=== PATIENT | male | born 1945 | race Caucasian/White ===

== ENCOUNTER 2019-06-01 21:59 | Inpatient (IN) | payer OTHER ==
[~2019-06-01] VITALS: Ht 162.6 cm; Wt 73.9 kg
[2019-06-01] MEDS ORDERED: ISOVUE-370 76% 100ML VIAL As Ordered ONE (23:04)
[2019-06-01 23:06] LABS: MEAN CORPUSCULAR HEMOGLOBIN 29.4 pg (27.0-33.0); MEAN CORPUSCULAR HGB CONC 34.2 g/dl (32.0-36.5); MEAN CORPUSCULAR VOLUME 85.8 fl (80.0-96.0); RED BLOOD COUNT 2.18 10^6/uL (4.30-6.10)
[2019-06-01 23:11] LABS: HEMATOCRIT 18.7 % (42.0-52.0)
[2019-06-01 23:15] LABS: HEMOGLOBIN 6.4 g/dl (13.5-17.5); INR 1.34; PLATELET COUNT, AUTOMATED 9 10^3/uL (150-450); PROTHROMBIN TIME 16.3 SECONDS (11.8-14.0)
[2019-06-01 23:30] LABS: ALBUMIN 2.6 GM/DL (3.2-5.2); ALT/SGPT 35 U/L (12-78); BILIRUBIN,DIRECT 0.5 MG/DL (0.0-0.2); BILIRUBIN,TOTAL 2.1 MG/DL (0.2-1.0); BLOOD UREA NITROGEN 26 MG/DL (7-18); CALCIUM LEVEL 8.4 MG/DL (8.8-10.2); CARBON DIOXIDE LEVEL 27 MEQ/L (21-32); CHLORIDE LEVEL 100 MEQ/L (98-107); CK-MB VALUE MASS < 1.0 NG/ML (<3.6); CPK CREATINE PHOSPHOKINASE 18 U/L (39-308); CREATININE FOR GFR 1.44 MG/DL (0.70-1.30); ETHYL ALCOHOL (ETHANOL) < 0.003 % (0.000-0.010); GLOMERULAR FILTRATION RATE 50.8 (>42); GLUCOSE, FASTING 129 MG/DL (70-100); LIPASE 93 U/L (73-393); MB/CK RELATIVE INDEX 5.56 (< OR =4); POTASSIUM SERUM 3.8 MEQ/L (3.5-5.1); SODIUM LEVEL 135 MEQ/L (136-145); THEOPHYLLINE LEVEL < 2.0 UG/ML (10.0-20.0); TOTAL PROTEIN 6.3 GM/DL (6.4-8.2); TROPONIN I < 0.02 NG/ML (< 0.10)
[2019-06-01 23:31] LABS: ATYPICAL LYMPH 5 % (0-5); EOSINOPHILS 6 % (0-3); LYMPHOCYTES 38 % (16-44); MONOCYTES 7 % (0-5); NEUTROPHILS 42 % (28-66); PLATELET ESTIMATE MARKED DECREASE (NORMAL)
[2019-06-01 23:32] LABS: POIKILOCYTOSIS 1+
[2019-06-01 23:33] LABS: ANISOCYTOSIS 1+
[2019-06-02] VITALS (18 sets, daily range): BP systolic 91–158; BP diastolic 50–88
[2019-06-02] MEDS ORDERED: PIPERACILLIN/TAZOBACTAM SOD 3.375 GM in D5W MINI-BAG PLUS 50 ML IV ONE (00:15)
[2019-06-02] MEDS ORDERED: VANCOMYCIN HCL 1,000 MG, VIAL MATE ADAPTER 1 EACH in D5W 250 ML IV SCH (00:15)
[2019-06-02 00:21] LABS: AMPHETAMINES LEVEL URINE NEGATIVE (NEGATIVE); BARBITURATES URINE NEGATIVE (NEGATIVE); BENZODIAZEPINES URINE NEGATIVE (NEGATIVE); CANNABINOIDS URINE NEGATIVE (NEGATIVE); COCAINE METABOLITE URINE NEGATIVE (NEGATIVE); METHADONE URINE NEGATIVE (NEGATIVE); OPIATES URINE NEGATIVE (NEGATIVE); PHENCYCLIDINE URINE NEGATIVE (NEGATIVE)
[2019-06-02] MEDS ORDERED: FOLI1TAB11 PO (00:35)
[2019-06-02] MEDS ORDERED: OMEP-218 PO (00:35)
[2019-06-02] MEDS ORDERED: DILT180C78 PO (00:35)
[2019-06-02] MEDS ORDERED: VENTAER INH (00:35)
[2019-06-02] MEDS ORDERED: THEO300T12 PO (00:35)
[2019-06-02] MEDS ORDERED: SPIR1CAP INH (00:35)
[2019-06-02] MEDS ORDERED: AMLO5TAB6 PO (00:35)
[2019-06-02] MEDS ORDERED: CIPR500T3 PO (00:35)
[2019-06-02] MEDS ORDERED: ATOR40TA75 PO (00:35)
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
--- NOTE | 2019-06-02 00:46 | REPVR ---
PROCEDURE INFORMATION: Exam: CT Lumbar Spine Without Contrast Exam date and time: 06/01/2019 10:28 PM Age: 74 years old Clinical indication: Low back pain; Additional info: Trauma TECHNIQUE: Imaging protocol: Computed tomography images of the lumbar spine without contrast. Radiation optimization: All CT scans at this facility use at least one of these dose optimization techniques: automated exposure control; mA and/or kV adjustment per patient size (includes targeted exams where dose is matched to clinical indication); or iterative reconstruction. COMPARISON: No relevant prior studies available. FINDINGS: No segmental lumbar vertebral malalignment. Vertebral body height and morphology is maintained. No acute fracture or destructive process. Intervertebral disc height is maintained for age. Mild posterior osteophyte formation and facet arthropathy in the mid and lower lumbar levels without osseous spinal canal narrowing. Hypertrophic ligamentum flavum arthropathy, disc bulge and facet arthropathy at L4-L5 and L3-L4 and to a lesser extent L2-L3 results in moderate spinal canal narrowing No dilatation of the imaged distal abdominal aorta. No significant abnormality of the imaged retroperitoneum. IMPRESSION: No fracture or other acute abnormality involving the lumbar spine. Moderate degenerative spinal canal narrowing L2-L3, L3-L4 and L4-L5 without osseous spinal canal or neural foraminal compromise Electronically signed by: Basilio Balderas On 06/02/2019 00:46:02 AM
--- NOTE | 2019-06-02 00:47 | REPVR ---
PROCEDURE INFORMATION: Exam: CT Cervical Spine Without Contrast Exam date and time: 06/01/2019 10:28 PM Age: 74 years old Clinical indication: Neck pain; Additional info: Trauma TECHNIQUE: Imaging protocol: Computed tomography images of the cervical spine without contrast. Radiation optimization: All CT scans at this facility use at least one of these dose optimization techniques: automated exposure control; mA and/or kV adjustment per patient size (includes targeted exams where dose is matched to clinical indication); or iterative reconstruction. COMPARISON: No relevant prior studies available. FINDINGS: Vertebrae: No acute fracture. Normal alignment. C2-C3: Minimal degenerative change of the right apophyseal joint with no spinal or foraminal stenosis. C3-C4: Minimal posterior paracentral osteophytes and degenerative changes of the apophyseal joints with no significant spinal or foraminal stenosis. C4-C5: Mild anterolisthesis with mild degenerative changes of apophyseal joints, right greater than left with borderline right neural foraminal stenosis. C5-C6: Slight anterolisthesis with degenerative changes of apophyseal joints with no significant spinal or foraminal stenosis. C6-C7: Mild interspace narrowing with minimal posterior osteophytes and low normal size of the spinal canal. There are degenerative changes of uncovertebral joints with moderate bilateral neural foraminal stenosis. C7-T1: Mild interspace narrowing with degenerative changes of apophyseal joints and low normal size of the neural foramen. Soft tissues: Unremarkable. Lungs: Lung apices are normal. IMPRESSION: Multilevel degenerative changes with neural foraminal stenosis bilaterally at C6-C7. No significant spinal stenosis and no acute fracture or subluxation. Electronically signed by: Alhaji Servin On 06/02/2019 00:46:52 AM
--- NOTE | 2019-06-02 00:53 | REPVR ---
PROCEDURE INFORMATION: Exam: CT Chest With Contrast Exam date and time: 06/01/2019 10:28 PM Age: 74 years old Clinical indication: Cough; Additional info: Trauma TECHNIQUE: Imaging protocol: Computed tomography of the chest with intravenous contrast. Radiation optimization: All CT scans at this facility use at least one of these dose optimization techniques: automated exposure control; mA and/or kV adjustment per patient size (includes targeted exams where dose is matched to clinical indication); or iterative reconstruction. Contrast material: ISO; Contrast volume: 100 ml; Contrast route: AC; COMPARISON: CR PORTABLE CHEST X-RAY 06/01/2019 10:44 PM FINDINGS: Lungs: Multiple ill-defined opacities in the lungs with appearance most suggestive of scarring, particularly right apex, subpleural upper lobes, and left lower lobe. No central endobronchial lesion and no evidence of pulmonary edema Pleural space: Miniscule dependent transudate density left pleural effusion. No right pleural effusion or pneumothorax. Heart: No overt cardiac enlargement or abnormal volume of pericardial fluid. . Mediastinum: No mediastinal hematoma. Aorta: Thoracic aorta shows no evidence of acute traumatic injury or dissection. Aorta appears tortuous. Great vessels off aortic arch: Atherosclerotic calcifications in the coronary vessels. Lymph nodes: No enlarged mediastinal lymph nodes. Bones/joints: No acute displaced fractures involving ribs, thoracic spine or shoulder girdle. Soft tissues: No asymmetric abnormality of the extrathoracic soft tissues. IMPRESSION: 1. No CT evidence of acute thoracic trauma. 2. Multifocal bilateral lung opacities which may represent areas of scarring, inflammatory change or infiltrative processes. Appearance is most suggestive of scarring. Follow-up is recommended as neoplasm cannot be excluded. Three-month follow-up CT is recommended based on the appearance. Electronically signed by: Basilio Balderas On 06/02/2019 00:52:54 AM
--- NOTE | 2019-06-02 00:55 | REPVR ---
PROCEDURE INFORMATION: Exam: CT Abdomen And Pelvis With Contrast Exam date and time: 06/01/2019 10:28 PM Age: 74 years old Clinical indication: Abdominal pain; Generalized; Additional info: Trauma TECHNIQUE: Imaging protocol: Computed tomography of the abdomen and pelvis with intravenous contrast. Radiation optimization: All CT scans at this facility use at least one of these dose optimization techniques: automated exposure control; mA and/or kV adjustment per patient size (includes targeted exams where dose is matched to clinical indication); or iterative reconstruction. Contrast material: ISO; Contrast volume: 100 ml; Contrast route: AC; COMPARISON: No relevant prior studies available. FINDINGS: Liver: Liver appears normal with no focal abnormality. Gallbladder and bile ducts: Gallstones are present in the gallbladder lumen. No adjacent fluid or duct dilatation. Pancreas: Pancreas appears normal. No focal mass or peripancreatic inflammation. Spleen: Spleen appears homogeneous without focal mass. Adrenals: Adrenal glands are normal in appearance. Kidneys and ureters: Kidneys are unremarkable aside from an exophytic 12 mm midpole left renal lesion measuring 26 Hounsfield units. Indeterminate density. Stomach and bowel: No evidence of small bowel obstruction. Diverticular changes are present within the colon without inflammation. Appendix: Appendix is not seen. No RLQ inflammation to suggest appendicitis. Intraperitoneal space: No pneumoperitoneum. Vasculature: Atherosclerotic change present in the aorta, without aneurysm. Main portal and splenic veins enhance normally. Lymph nodes: No enlarged lymph nodes. Bladder: Urinary bladder appears normal. Reproductive: Prostate is normal in size. Bones/joints: Bony structures are normal except for lumbar spine degenerative disc changes. Soft tissues: No intra-abdominal hematoma. No pelvic hematoma. Fat-containing left inguinal hernia is present. Other findings: No concerning focal abnormality of the extrinsic soft tissues. IMPRESSION: 1. No CT evidence of acute abdominal or pelvic trauma. 2. Cholelithiasis without biliary obstruction. 3. Indeterminate 12 mm exophytic midpole left renal lesion . Consider outpatient sonography to determine if this is a simple cyst. Electronically signed by: Basilio Balderas On 06/02/2019 00:55:18 AM
[2019-06-02] MEDS ORDERED: COMMENT (00:57)
--- NOTE | 2019-06-02 02:49 | REP ---
Clinical: Trauma. Technique: Portable upright view of the chest. Findings: Mediastinum and cardiac silhouette normal. Diffuse increased interstitial markings noted bilaterally with subtle ill-defined areas of opacity involving the right perihilar region and left mid to lower lung zone. A small left pleural effusion cannot be excluded. There is no evidence for pneumothorax. Right PICC line with tip in the SVC. Skeletal structures are intact. Impression: Diffusely increased interstitial markings along with subtle right perihilar and the left mid/lower lobe opacities are nonspecific but suggest an acute process. Differential diagnosis would include early interstitial edema, infectious/inflammatory process, trauma related changes as well as possible underlying neoplasm. Electronically Signed by Bartolo Santiago MD 06/02/2019 02:40 A
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
[2019-06-02] MEDS: diltiaZEM **CD** 180 MG CAP PO SCH ×2 (03:26→08:17)
[2019-06-02 08:14] LABS: CK-MB VALUE MASS < 1.0 NG/ML (<3.6); CPK CREATINE PHOSPHOKINASE 44 U/L (39-308); MB/CK RELATIVE INDEX 2.27 (< OR =4); TROPONIN I < 0.02 NG/ML (< 0.10)
[2019-06-02] MEDS: amLODIPine 5 MG TAB PO SCH (08:17)
[2019-06-02] MEDS: PIPERACILLIN/TAZOBACTAM SOD 3.375 GM in D5W MINI-BAG PLUS 50 ML IV SCH ×3 (08:17→20:19)
[2019-06-02] MEDS: OMEPRAZOLE 20 MG CAP PO SCH (08:17)
[2019-06-02] MEDS: FOLIC ACID 1 MG TAB PO SCH (08:18)
[2019-06-02] MEDS: TIOTROPIUM INHALER/CAPSULE (SPIRIVA) INH SCH (08:25)
[2019-06-02] MEDS ORDERED: FILGRASTIM 300 MCG/0.5 ML SYRINGE (J1442 PER 1MCG) SC SCH (09:00)
[2019-06-02] MEDS: METOPROLOL TART 25 MG TABLET PO SCH ×2 (10:09→20:21)
[2019-06-02] MEDS ORDERED: ACETAMINOPHEN TAB 650MG DOSE (2X325MG) PO PRN (11:00)
[2019-06-02 16:25] LABS: HEMATOCRIT 25.3 % (42.0-52.0); HEMOGLOBIN 8.8 g/dl (13.5-17.5); MEAN CORPUSCULAR HEMOGLOBIN 29.6 pg (27.0-33.0); MEAN CORPUSCULAR HGB CONC 34.8 g/dl (32.0-36.5); MEAN CORPUSCULAR VOLUME 85.2 fl (80.0-96.0); RED BLOOD COUNT 2.97 10^6/uL (4.30-6.10); WHITE BLOOD COUNT 2.3 10^3/uL (4.0-10.0)
[2019-06-02 16:27] LABS: PLATELET COUNT, AUTOMATED 15 10^3/uL (150-450)
[2019-06-02 16:49] LABS: ATYPICAL LYMPH 3 % (0-5); EOSINOPHILS 8 % (0-3); LYMPHOCYTES 25 % (16-44); METAMYELOCYTES 4 % (0-0); MONOCYTES 1 % (0-5); NEUTROPHILS 45 % (28-66)
[2019-06-02 16:56] LABS: PLATELET ESTIMATE MARKED DECREASE (NORMAL); TOXIC VACUOLATION 2+
[2019-06-02 16:58] LABS: DOHLE BODIES 1+
--- NOTE | 2019-06-02 20:34 | ECGEPIP ---
[facility] - ED Test Date: 2019-06-01 Pat Name: JEAN MARIE NORTH Department: Room: [place] [address] Gender: Male [employer] Administrator: : 1945 Requested By: MARIANNE Bell Order Number: [id number] Reading MD: Miguel Jewell Measurements Intervals [place] Rate: 106 P: DE: 0 QRS: 37 QRSD: 86 T: 50 QT: 318 QTc: 423 Interpretive Statements SINUS TACHYCARDIA NONSPECIFIC T-WAVE ABNORMALITY NO PRIORS FOR COMPARISON Electronically Signed on 06-02-2019 20:34:04 EDT by Miguel Jewell
[2019-06-02] MEDS: METOCLOPRAMIDE INJ 10MG/2ML VIAL (J2765 PER 1) IV SCH (20:47)
[2019-06-03] VITALS (8 sets, daily range): BP systolic 125–153; BP diastolic 61–86
[2019-06-03] MEDS: PIPERACILLIN/TAZOBACTAM SOD 3.375 GM in D5W MINI-BAG PLUS 50 ML IV SCH ×2 (02:07→08:06)
[2019-06-03] MEDS: METOCLOPRAMIDE INJ 10MG/2ML VIAL (J2765 PER 1) IV SCH ×6 (05:40→23:32)
[2019-06-03] MEDS: ACETAMINOPHEN TAB 650MG DOSE (2X325MG) PO PRN ×2 (05:56→12:48)
[2019-06-03 07:02] LABS: HEMATOCRIT 23.9 % (42.0-52.0); HEMOGLOBIN 8.5 g/dl (13.5-17.5); MEAN CORPUSCULAR HEMOGLOBIN 29.5 pg (27.0-33.0); MEAN CORPUSCULAR HGB CONC 35.6 g/dl (32.0-36.5); PLATELET COUNT, AUTOMATED 12 10^3/uL (150-450); RED BLOOD COUNT 2.88 10^6/uL (4.30-6.10)
[2019-06-03 07:31] LABS: CALCIUM LEVEL 7.9 MG/DL (8.8-10.2); GLOMERULAR FILTRATION RATE 34.8 (>42); POTASSIUM SERUM 3.4 MEQ/L (3.5-5.1)
[2019-06-03 07:41] LABS: ATYPICAL LYMPH 2 % (0-5); EOSINOPHILS 2 % (0-3); LYMPHOCYTES 14 % (16-44); METAMYELOCYTES 1 % (0-0); MONOCYTES 4 % (0-5); MYELOCYTES 1 % (0-0); NEUTROPHILS 63 % (28-66); PLATELET ESTIMATE MARKED DECREASE (NORMAL)
[2019-06-03 07:42] LABS: ANISOCYTOSIS 1+; DOHLE BODIES 1+; MICROCYTOSIS 1+; TOXIC GRANULATION 1+
[2019-06-03] MEDS: TIOTROPIUM INHALER/CAPSULE (SPIRIVA) INH SCH (07:43)
[2019-06-03] MEDS: METOPROLOL TART 25 MG TABLET PO SCH ×2 (08:06→20:00)
[2019-06-03] MEDS: FOLIC ACID 1 MG TAB PO SCH (08:07)
[2019-06-03] MEDS: diltiaZEM **CD** 180 MG CAP PO SCH (08:07)
[2019-06-03] MEDS: OMEPRAZOLE 20 MG CAP PO SCH (08:07)
[2019-06-03] MEDS: amLODIPine 5 MG TAB PO SCH (12:47)
[2019-06-03] MEDS ORDERED: POTASSIUM CHLORIDE 10 MEQ SR TABLET PO ONE (15:15)
--- NOTE | 2019-06-03 15:19 | REP ---
Right upper extremity duplex Doppler venous ultrasound. Real time compression and duplex Doppler evaluation of the right upper extremity deep venous system is performed. The right subclavian, jugular, axillary, brachial, basilic and cephalic veins are fully compressible where accessible with transducer pressure, and demonstrate no intraluminal thrombus and normal venous waveforms. There is no evidence of deep venous thrombosis. Impression: No evidence of deep venous thrombosis of the right upper extremity deep vein system. Electronically Signed by Juan Carlos Leyva MD 06/03/2019 03:11 P
[2019-06-03] MEDS: NS 1,000 ML IV SCH (15:56)
[2019-06-03] MEDS: CEFEPIME HCL 1 GM in D5W MINI-BAG PLUS 50 ML IV SCH (16:47)
--- NOTE | 2019-06-03 18:22 | IPNPDOC ---
Date Seen The patient was seen on 06/03/19. Progress Note SUBJECTIVE: 74-year-old male with past medical history of COPD, atrial fibrillation and acute myeloid leukemia was admitted for neutropenic fever. Patient has remained on empiric antibiotics, remained afebrile and asymptomatic throughout hospitalization. Patient seen in the morning, comfortable, no complacent. This time, no acute events overnight. 10 point review of system is negative for above PHYSICAL EXAMINATION: VITAL SIGNS: Please see below. GENERAL: No distress HEENT: Normocephalic, atraumatic, moist mucous membranes NECK: Supple CARDIOVASCULAR EXAMINATION: S1, S2, tachycardic RESPIRATORY EXAMINATION: Scattered rhonchi, no wheezing ABDOMINAL EXAMINATION: Soft, nontender, nondistended, positive bowel sounds EXTREMITIES: Range of motion intact SKIN: Petechiae noted NEUROLOGICAL EXAMINATION: Alert and oriented 3, no focal deficits PSYCHIATRIC EXAMINATION: Calm and cooperative LABORATORY DATA, IMAGING STUDIES, MICROBIOLOGY: Please see below. ASSESSMENT AND PLAN: 74-year-old male with past medical history of acute myeloid leukemia, COPD and atrial fibrillation is admitted for neutropenic fever and acute kidney injury. PROBLEMS: 1. Neutropenic fever: Afebrile and asymptomatic throughout hospitalization, cultures pending, continue empiric antibiotics, will switch Zosyn to cefepime due to acute kidney injury. Patient received Neupogen, absolute neutrophil count has recovered, Neupogen discontinued. 2. Anemic/Thrombocytopenic: Likely chronic and related to acute myeloid leukemia, PRBC/platelet transfusion dependent, will transfuse 1 unit of platelets today. 3. Acute on chronic kidney disease: Unknown etiology, possibly prerenal, gentle IV hydration, will perform extensive renal workup if continues to worsen. 4. COPD: Stable, continue tiotropium and supplemental oxygen as needed to maintain O2 sats between 88-92% 5. Atrial fibrillation: Not on anticoagulation due to severe thrombocytopenia, continue metoprolol and Cardizem for rate control. 6. Hypertension: Continue metoprolol, Cardizem and Norvasc DVT prophylaxis: Contraindicated due to thrombocytopenia. GI prophylaxis: Home PPI VS, I&O, 24H, Fishbone Vital Signs/I&O Vital Signs Date Time Temp Pulse Resp B/P (MAP) Pulse Ox O2 Delivery O2 Flow Rate FiO2 06/03/19 17:51 98.6 100 20 145/78 (100) 90 Room Air 4/16/20 21:00 1.0 I&O- Last 24 Hours up to 6 AM 06/03/19 06:00 Intake Total 3694 ml Output Total 950 ml Balance 2744 ml Laboratory Data 24H LABS Laboratory Tests 2 06/03/19 06:40: Immature Granulocyte % (Auto) , Neutrophils (%) (Auto) , Nucleated Red Blood Cells % (auto) 0.7H, Neutrophils 63, Band Neutrophils 13H, Lymphocytes (Manual) 14L, Monocytes (Manual) 4, Eosinophils (Manual) 2, Metamyelocytes 1H, Myelocytes 1H, Atypical Lymphocytes 2, Anisocytosis 1+, Microcytosis 1+, Toxic Granulation 1+, Dohle Bodies 1+, Platelet Estimate MARKED DECREASE, Immature Platelet Fraction 4.2, Anion Gap 9, Glomerular Filtration Rate 34.8L, Calcium Level 7.9L CBC/BMP Laboratory Tests 06/03/19 06:40 Microbiology Microbiology 06/01/19 Blood Culture - Preliminary, Resulted No growth after 24 hours . All specim... 06/01/19 Blood Culture - Preliminary, Resulted No growth after 24 hours . All specim... JEY EASTON MD Jun 03, 2019 18:22
[2019-06-03] MEDS ORDERED: hydrOXYzine 25 MG TAB PO ONE (20:00)
[2019-06-04] MEDS: NS 1,000 ML IV SCH (03:12)
[2019-06-04] MEDS: LEVALBUTEROL HFA 45MCG/ACT 15 GM INHALER INH PRN ×3 (03:56→16:48)
[2019-06-04 04:00] VITALS: BP 151/85
[2019-06-04] MEDS: CEFEPIME HCL 1 GM in D5W MINI-BAG PLUS 50 ML IV SCH ×2 (04:03→15:51)
[2019-06-04 04:50] LABS: HEMATOCRIT 22.5 % (42.0-52.0); HEMOGLOBIN 7.9 g/dl (13.5-17.5); MEAN CORPUSCULAR HEMOGLOBIN 29.4 pg (27.0-33.0); MEAN CORPUSCULAR HGB CONC 35.1 g/dl (32.0-36.5); MEAN CORPUSCULAR VOLUME 83.6 fl (80.0-96.0); RED BLOOD COUNT 2.69 10^6/uL (4.30-6.10); WHITE BLOOD COUNT 1.8 10^3/uL (4.0-10.0)
[2019-06-04 04:51] LABS: PLATELET COUNT, AUTOMATED 24 10^3/uL (150-450)
[2019-06-04 05:11] LABS: CALCIUM LEVEL 7.4 MG/DL (8.8-10.2); CREATININE FOR GFR 1.92 MG/DL (0.70-1.30); GLOMERULAR FILTRATION RATE 36.4 (>42); POTASSIUM SERUM 3.6 MEQ/L (3.5-5.1)
[2019-06-04 05:25] LABS: ATYPICAL LYMPH 1 % (0-5); EOSINOPHILS 3 % (0-3); LYMPHOCYTES 29 % (16-44); METAMYELOCYTES 3 % (0-0); MONOCYTES 5 % (0-5); MYELOCYTES 1 % (0-0); NEUTROPHILS 56 % (28-66)
[2019-06-04 05:26] LABS: PLATELET ESTIMATE MARKED DECREASE (NORMAL)
[2019-06-04] MEDS: METOCLOPRAMIDE INJ 10MG/2ML VIAL (J2765 PER 1) IV SCH ×3 (05:26→18:00)
[2019-06-04 05:27] LABS: DOHLE BODIES 1+
[2019-06-04 05:28] LABS: ANISOCYTOSIS 1+
[2019-06-04] MEDS: TIOTROPIUM INHALER/CAPSULE (SPIRIVA) INH SCH (07:39)
[2019-06-04] MEDS ORDERED: POTASSIUM CHLORIDE 10 MEQ SR TABLET PO ONE (09:00)
[2019-06-04] MEDS: diltiaZEM **CD** 180 MG CAP PO SCH (09:18)
[2019-06-04] MEDS: FOLIC ACID 1 MG TAB PO SCH (09:18)
[2019-06-04] MEDS: OMEPRAZOLE 20 MG CAP PO SCH (09:19)
[2019-06-04] MEDS: ACETAMINOPHEN TAB 650MG DOSE (2X325MG) PO PRN ×2 (09:19→18:58)
[2019-06-04] MEDS: METOPROLOL TART 25 MG TABLET PO SCH ×2 (09:19→20:48)
[2019-06-04] MEDS: amLODIPine 5 MG TAB PO SCH (09:20)
[2019-06-04] MEDS: ALPRAZolam 0.5 MG TAB PO PRN (10:11)
--- NOTE | 2019-06-04 10:21 | REP ---
Chest x-ray: Two views. History: Hypoxia. Comparison chest x-ray June 01, 2019. Findings: There are bilateral parenchymal opacities consistent with infiltrates in the upper and lower perihilar region on the right and in the left perihilar region on the left. These areas are all more prominent than on the June 01, 2019 prior study. There is slight blunting of the left lateral pleural angle. There is no evidence of pneumothorax. A right-sided PICC line remains in place with its tip in the expected location of the SVC right atrial junction. Lateral film shows slight fissural thickening. Impression: Bilateral perihilar infiltrates, increased from the study done June 01, 2019 suggestive of bilateral pneumonia. Right-sided PICC line. Electronically Signed by Kalia Cook MD 06/04/2019 10:28 A
[2019-06-04 11:32] LABS: URIC ACID 5.1 MG/DL (3.5-7.2)
--- NOTE | 2019-06-04 11:41 | IPNPDOC ---
Date Seen The patient was seen on 06/04/19. Progress Note SUBJECTIVE: 74-year-old male with past medical history of COPD, atrial fibrillation and acute myeloid leukemia was admitted for neutropenic fever. Patient has remained afebrile throughout hospitalization, received multiple blood products due to severe anemia and thrombocytopenia. Patient also with acute kidney injury, received IV fluids, appears more tachypneic in the morning, reports mild shortness of breath and cough, no other complaints. 10 point review of system is negative for above PHYSICAL EXAMINATION: VITAL SIGNS: Please see below. GENERAL: No distress HEENT: Normocephalic, atraumatic, moist mucous membranes NECK: Supple CARDIOVASCULAR EXAMINATION: S1, S2, irregularly irregular, tachycardic RESPIRATORY EXAMINATION: Scattered rhonchi, no wheezing ABDOMINAL EXAMINATION: Soft, nontender, nondistended, positive bowel sounds EXTREMITIES: Range of motion intact SKIN: Petechiae noted NEUROLOGICAL EXAMINATION: Alert and oriented 3, no focal deficits PSYCHIATRIC EXAMINATION: Calm and cooperative LABORATORY DATA, IMAGING STUDIES, MICROBIOLOGY: Please see below. ASSESSMENT AND PLAN: 74-year-old male with past medical history of acute myeloid leukemia, COPD and atrial fibrillation is admitted for neutropenic fever and acute kidney injury. PROBLEMS: 1. Neutropenic fever: Afebrile and asymptomatic throughout hospitalization, cultures negative to date, continue cefepime. 2. Acute myeloid leukemia: Status post induction treatment 1-2 weeks ago, pancytopenic, received Neupogen/PRBC/platelets, continue Neupogen, oncology eval pending, 3. Acute on chronic kidney disease: Unknown etiology, possible tumor lysis syndrome, uric acid pending, patient appears volume overloaded, tachypneic and chest x-ray showing pulmonary vascular congestion, Lasix 40 mg IV 1, will monitor and treat accordingly. TTE pending 4. COPD: Stable, continue tiotropium and supplemental oxygen as needed to maintain O2 sats between 88-92% 5. Atrial fibrillation: Not on anticoagulation due to severe thrombocytopenia, continue metoprolol and Cardizem for rate control. 6. Hypertension: Continue metoprolol, Cardizem and Norvasc DVT prophylaxis: Contraindicated due to thrombocytopenia. GI prophylaxis: Home PPI VS, I&O, 24H, Fishbone Vital Signs/I&O Vital Signs Date Time Temp Pulse Resp B/P (MAP) Pulse Ox O2 Delivery O2 Flow Rate FiO2 06/04/19 09:20 118 151/85 06/04/19 04:00 97.6 22 92 Nasal Cannula 2.0 I&O- Last 24 Hours up to 6 AM 06/04/19 05:59 Intake Total 2120 ml Output Total 1100 ml Balance 1020 ml Laboratory Data 24H LABS Laboratory Tests 2 06/04/19 04:25: Neutrophils (%) (Auto) , Nucleated Red Blood Cells % (auto) 1.1H, Neutrophils 56, Band Neutrophils 2, Lymphocytes (Manual) 29, Monocytes (Manual) 5, Eosino phils (Manual) 3, Metamyelocytes 3H, Myelocytes 1H, Atypical Lymphocytes 1, Anisocytosis 1+, Dohle Bodies 1+, Platelet Estimate MARKED DECREASE, Anion Gap 8, Glomerular Filtration Rate 36.4L, Calcium Level 7.4L CBC/BMP Laboratory Tests 06/04/19 04:25 Microbiology Microbiology 06/01/19 Blood Culture - Preliminary, Resulted No Growth after 48 hours. All Specime... 06/01/19 Blood Culture - Preliminary, Resulted No Growth after 48 hours. All Specime... JEY EASTON MD Jun 04, 2019 11:41
[2019-06-04] MEDS ORDERED: FUROSEMIDE 40MG/4ML VIAL (J1940) IV ONE (12:00)
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
[2019-06-04] MEDS ORDERED: FILGRASTIM 300 MCG/0.5 ML SYRINGE (J1442 PER 1MCG) SC ONE (14:00)
[2019-06-04 14:13] VITALS: BP 145/85
[2019-06-04 17:10] LABS: ABG HCO3 22.1 MEQ/L (22.0-26.0); ABG O2 SATURATION 93.2 % (95.0-99.0); ABG PARTIAL PRESSURE CO2 30.9 mmHg (35.0-45.0); ABG PARTIAL PRESSURE O2 66.7 mmHg (75.0-100.0); ABG STANDARD HCO3 23.6 MEQ/L (22.0-26.0); ABG TOTAL CO2 23.1 MEQ/L (23.0-31.0); ABG pH (ARTERIAL) 7.473 UNITS (7.350-7.450)
[2019-06-04 22:00] VITALS: BP 131/58
[2019-06-04] MEDS: FUROSEMIDE 40MG/4ML VIAL (J1940) IV SCH (23:54)
[2019-06-05] MEDS: CEFEPIME HCL 1 GM in D5W MINI-BAG PLUS 50 ML IV SCH (04:23)
[2019-06-05 04:27] LABS: HEMATOCRIT 26.4 % (42.0-52.0); MEAN CORPUSCULAR HGB CONC 34.1 g/dl (32.0-36.5); MEAN CORPUSCULAR VOLUME 85.2 fl (80.0-96.0); WHITE BLOOD COUNT 4.4 10^3/uL (4.0-10.0)
[2019-06-05 04:35] LABS: PLATELET COUNT, AUTOMATED 25 10^3/uL (150-450)
[2019-06-05 04:47] LABS: CALCIUM LEVEL 8.3 MG/DL (8.8-10.2); CREATININE FOR GFR 2.09 MG/DL (0.70-1.30); POTASSIUM SERUM 4.2 MEQ/L (3.5-5.1)
[2019-06-05 04:49] LABS: EOSINOPHILS 2 % (0-3); LYMPHOCYTES 9 % (16-44); METAMYELOCYTES 11 % (0-0); MONOCYTES 3 % (0-5); MYELOCYTES 1 % (0-0); NEUTROPHILS 69 % (28-66); PLATELET ESTIMATE MARKED DECREASE (NORMAL)
[2019-06-05 04:51] LABS: DOHLE BODIES 1+
[2019-06-05 04:52] LABS: ANISOCYTOSIS 1+
[2019-06-05] MEDS: ACETAMINOPHEN TAB 650MG DOSE (2X325MG) PO PRN (05:38)
[2019-06-05] MEDS: ALPRAZolam 0.5 MG TAB PO PRN (05:38)
[2019-06-05 06:00] VITALS: BP 154/68
--- NOTE | 2019-06-05 06:33 | ECHO ---
DATE OF PROCEDURE: 06/04/2019 DATE OF : 1945 AGE: 74 GENDER: Male. HEIGHT: 61 inches WEIGHT: 165 pounds BODY SURFACE AREA: 1.8 m2 INPATIENT: Maya luque, room 5146 REFERRING PHYSICIAN: Dr. Ridge Landaverde INDICATION: Congestive heart failure (unspecified). MEASUREMENTS: 2-D Measurements: RV: 4.6 cm LV: 5.1 cm Septum: 1.0 cm Posterior wall: 1.0 cm Aortic root: 3.1 cm LA: 3.9 cm LVEF: 55% Doppler Measurements: AV: 1.85 m/sec LVOT: 0.95 m/sec LVOT diameter: 2.0 cm Mean AV systolic gradient: 8 mmHg Dimensionless index: 0.42 MV - E: 102, A: 76, EA ratio: 1.3 Early mitral deceleration time: 209 ms E prime medial: 6.2, A prime medial: 10, E prime lateral: 8.4 Average E/E prime ratio: 14/PCWP 19 mmHg PV: 0.9 m/sec Pulmonary artery acceleration time: 87 ms RVSP: 45-50 mmHg IVC: 2.2 cm COMMENTS: Sinus tachycardia with occasional to frequent isolated PACs. No intraventricular conduction disturbance. M-mode and two-dimensional echocardiography was performed with pulsed, continuous wave, color flow and tissue Doppler studies. Normal left ventricular size and wall thickness. Localized septal wall motion abnormality in keeping with right ventricular pressure overload. Other left ventricle wall segments move normally with preserved global resting systolic function. Left atrium upper limits of normal in size with grade II LV diastolic dysfunction but current estimated mean left atrial pressure upper limits of normal to slightly elevated. Moderately dilated right heart chambers with slight hypokinesis of the right ventricular free wall and Doppler evidence of at least moderate to moderately severe pulmonary hypertension. Mildly dilated inferior vena cava with slightly reduced respiratory collapse in keeping with an elevated central venous pressure. Normal aortic dimensions. Moderate thickening of three equal size aortic cusps in keeping with aortic sclerosis and at most marginal stenosis and only trace insufficiency. Mild degenerative changes of the mitral valvular apparatus with adequate leaflet excursion and very mild insufficiency. Normal appearing tricuspid valve with mild insufficiency. No apparent intracardiac mass or pericardial effusion. Preliminary report of this study was relayed directly to Dr. Landaverde 06/04/2019.
[2019-06-05] MEDS: TIOTROPIUM INHALER/CAPSULE (SPIRIVA) INH SCH (07:33)
[2019-06-05] MEDS: LEVALBUTEROL HFA 45MCG/ACT 15 GM INHALER INH PRN (07:34)
[2019-06-05] MEDS ORDERED: VANCOMYCIN HCL 1,000 MG, VIAL MATE ADAPTER 1 EACH in D5W 250 ML IV ONE (08:00)
[2019-06-05] MEDS ORDERED: FLUCONAZOLE 100 MG TAB PO ONE (08:00)
[2019-06-05] MEDS: FOLIC ACID 1 MG TAB PO SCH (08:25)
[2019-06-05] MEDS: METOPROLOL TART 25 MG TABLET PO SCH (08:25)
[2019-06-05] MEDS: OMEPRAZOLE 20 MG CAP PO SCH (08:25)
[2019-06-05] MEDS: diltiaZEM **CD** 180 MG CAP PO SCH (08:25)
[2019-06-05] MEDS: amLODIPine 5 MG TAB PO SCH (08:25)
[2019-06-05] MEDS ORDERED: FILGRASTIM 300 MCG/0.5 ML SYRINGE (J1442 PER 1MCG) SC SCH (09:00)
[2019-06-05 11:21] LABS: ALBUMIN 2.5 GM/DL (3.2-5.2); BILIRUBIN,TOTAL 1.1 MG/DL (0.2-1.0); TOTAL PROTEIN 5.8 GM/DL (6.4-8.2); URIC ACID 6.1 MG/DL (3.5-7.2)
[2019-06-05] MEDS: FUROSEMIDE 40MG/4ML VIAL (J1940) IV SCH (11:31)
[2019-06-05] MEDS: IPRATROPIUM 0.5MG/ALBUTEROL 2.5MG INH SOL UD 3ML (DUONEB)(J7620) NEB SCH ×3 (12:00→20:23)
[2019-06-05 13:01] LABS: AMORPHOUS SEDIMENT SMALL (NEGATIVE); APPEARANCE, URINE HAZY (CLEAR); BACTERIA, URINE AUTO 1+ (NEGATIVE); BILIRUBIN, URINE AUTO NEGATIVE (NEGATIVE); BLOOD, URINE BLOOD 3+ (NEGATIVE); COLOR, URINE YELLOW (YELLOW); GLUCOSE, URINE (UA) AUTO NEGATIVE (NEGATIVE); GRANULAR CAST, URINE AUTO 9 /LPF; KETONE, URINE AUTO NEGATIVE (NEGATIVE); LEUKOCYTE ESTERASE, URINE AUTO NEGATIVE (NEGATIVE); MUCUS, URINE SMALL (NEGATIVE); NITRITE, URINE AUTO NEGATIVE (NEGATIVE); PROTEIN, URINE AUTO 2+ mg/dL (NEGATIVE); RBC, URINE AUTO 177 /HPF (0-3); SPECIFIC GRAVITY URINE AUTO 1.006 (1.002-1.035); SQUAMOUS EPITHELIAL CELL UR AU 0 /HPF (0-6); UROBILINOGEN, URINE AUTO 0.2 mg/dL (0.0-2.0); WBC, URINE AUTO 1 /HPF (0-3)
[2019-06-05 13:30] VITALS: BP 154/70
[2019-06-05 14:10] VITALS: BP 139/66
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
[2019-06-05] MEDS: MEROPENEM INJ 1 GM in IV 1 EA IV SCH (14:47)
[2019-06-05] MEDS: methylPREDNISolone INJ 125 MG/2 ML VIAL (J2930) IV SCH (14:47)
--- NOTE | 2019-06-05 15:56 | IPNPDOC ---
Date Seen The patient was seen on 06/05/19. Progress Note SUBJECTIVE: 74-year-old male with past medical history of COPD, atrial fibrillation and acute myeloid leukemia was admitted for neutropenic fever. Patient seen in the morning, remains tachypneic but denies dyspnea when asked and reports he's comfortable. He continues to require supplemental oxygen, has had good urine output w/ IV Lasix. He has been febrile over the past 24 hours. He denies any CP, N/V/D or constipation. 10 point review of system is negative for above PHYSICAL EXAMINATION: VITAL SIGNS: Please see below. GENERAL: No distress HEENT: Normocephalic, atraumatic, moist mucous membranes NECK: Supple CARDIOVASCULAR EXAMINATION: S1, S2, irregular, tachycardic RESPIRATORY EXAMINATION: Scattered rhonchi, poor air movement ABDOMINAL EXAMINATION: Soft, nontender, nondistended, positive bowel sounds EXTREMITIES: Range of motion intact SKIN: Petechiae noted NEUROLOGICAL EXAMINATION: Alert and oriented 3, no focal deficits PSYCHIATRIC EXAMINATION: Calm and cooperative LABORATORY DATA, IMAGING STUDIES, MICROBIOLOGY: Please see below. ASSESSMENT AND PLAN: 74-year-old male with past medical history of acute myeloid leukemia, COPD and atrial fibrillation is admitted for neutropenic fever and acute kidney injury. PROBLEMS: 1. Neutropenic fever: Spiked fever x2 over the past 24 hours, antibiotics switched to Vanc/Merrem, added Fluconazole as well, initial cultures negative, repeat cultures ordered. 2. Acute myeloid leukemia: Status post palliative chemotherapy x2 cycles, pancytopenic, received Neupogen/PRBC/platelets, counts improving & stable, Neupogen discontinued, oncology eval appreciated. 3. Acute on chronic kidney disease: Likely due to chemotherapy (Gemcitabine), creatinine stable ~2, continue diuresis w/ IV Lasix, TTE noted, Nephrology eval appreciated. 4. COPD: given dyspnea & increased oxygen requirements, started on IV steroids in addition to antibiotics, duoneb PRN, continue Tiotropium & supplemental oxygen as needed to maintain O2 sats between 88-92% 5. Atrial fibrillation: Not on anticoagulation due to severe thrombocytopenia, continue Cardizem for rate control. 6. Hypertension: Continue Cardizem and Norvasc DVT prophylaxis: Contraindicated due to thrombocytopenia. GI prophylaxis: Home PPI VS, I&O, 24H, Fishbone Vital Signs/I&O Vital Signs Date Time Temp Pulse Resp B/P (MAP) Pulse Ox O2 Delivery O2 Flow Rate FiO2 06/05/19 14:11 4.0 06/05/19 14:10 99.5 117 24 139/66 (90) 88 Nasal Cannula I&O- Last 24 Hours up to 6 AM 06/05/19 05:59 Intake Total 1580 ml Output Total 2545 ml Balance -965 ml Laboratory Data 24H LABS Laboratory Tests 2 06/04/19 17:01: Blood Gas Bicarbonate Standard 23.6, Arterial Blood pH 7.473H, Arterial Blood Partial Pressure CO2 30.9L, Arterial Blood Partial Pressure O2 66.7L, Arterial Blood Total CO2 23.1, Arterial Blood HCO3 22.1, Arterial Blood Base Excess -1.0, Arterial Blood Oxygen Saturation 93.2L 06/05/19 04:14: Neutrophils (%) (Auto) , Nucleated Red Blood Cells % (auto) 0.7H, Neutrophils 69H, Band Neutrophils 5, Lymphocytes (Manual) 9L, Monocytes (Manual) 3, Eosinophils (Manual) 2, Metamyelocytes 11H, Myelocytes 1H, Anisocytosis 1+, Dohle Bodies 1+, Platelet Estimate MARKED DECREASE, Differential Slide Review Report, Immature Platelet Fraction 5.6, Peripheral Blood Smear Path Consult PERIPHERAL SMEAR, Anion Gap 8, Glomerular Filtration Rate 33.0L, Uric Acid 6.1, Calcium Level 8.3L, Phosphorus Level 4.0, Total Bilirubin 1.1H, Aspartate Amino Transf (AST/SGOT) 16, Alanine Aminotransferase (ALT/SGPT) 23, Alkaline Phosphatase 59, NH-Unj-T-Type Natriuretic Peptide 1494H, Total Protein 5.8L, Albumin 2.5L, Albumin/Globulin Ratio 0.76L 06/05/19 12:47: Urine Color YELLOW, Urine Appearance HAZY, Urine pH 5.0, Urine Specific [place] 1.006, Urine Protein 2+H, Urine Glucose (Auto)(UA) NEGATIVE, Urine Ketones (Auto) NEGATIVE, Urine Blood 3+H, Urine Nitrite NEGATIVE, Urine Bilirubin NEGATIVE, Urine Urobilinogen 0.2, Urine Leukocyte Esterase (Auto) NEGATIVE, Urine WBC (Auto) 1, Urine RBC (Auto) 177H, Urine Hyaline Casts (Auto) 0, Urine Bacteria (Auto) 1+H, Urine Squamous Epithelial Cells 0, Urine Amorphous Sediment (Auto) SMALLH, Urine Granular Casts (Auto) 9, Urine Mucus (Auto) SMALL, Urine Sperm (Auto) CBC/BMP Laboratory Tests 06/05/19 04:14 Microbiology Microbiology 06/05/19 Blood Culture, Received Pending 06/01/19 Blood Culture - Preliminary, Resulted No Growth after 72 hours. All specime... 06/01/19 Blood Culture - Preliminary, Resulted No Growth after 72 hours. All specime... JEY EASTON MD Jun 05, 2019 15:56
[2019-06-05 16:00] VITALS: BP 146/58
[2019-06-05] MEDS ORDERED: SODIUM CHLORIDE 0.9% INJ 10 ML SYR IV PRN (16:00)
[2019-06-05] MEDS ORDERED: SLF 3 ML SYR IV PRN (16:00)
[2019-06-05] MEDS: SODIUM CHLORIDE 0.9% INJ 10 ML SYR IV SCH (16:44)
[2019-06-05] MEDS ORDERED: FUROSEMIDE 100MG/10ML VIAL (J1940) IV SCH (17:00)
--- NOTE | 2019-06-05 18:14 | PHACANCOPD ---
PHARMACY VANCOMYCIN DOSING Pt Demographics Demographics Patient Age:74 , Weight:76.800 , Gender: male Adjusted Body Weight Date: 06/05/19, Adjusted Body Weight: Kg Events Past 24 Hours Events Past 24 Hours: NO: Dialysis, Diuretic Therapy, Change in CrCl, Fever, Elevation in WBC, Pending Diagnostics, Pending Procedures, Other Vancomycin Vancomycin indication: NEUTROPENIC FEVER Vancomycin Target Ranges: 15-20 mcg/ml Vancomycin Load Y/N: No Load Dose Date Time Vancomycin Load Dose: Date: Time: Vancomycin Dose Date: 06/05/19. Current Vancomycin Dose: [1G IV Q24H] Intermittent Dosing?: No Labs Labs Item Value Date Time Creatinine 2.00 MG/DL H 06/03/19 0640 Creatinine 1.92 MG/DL H 06/04/19 0425 Creatinine 2.09 MG/DL H 06/05/19 0414 Micro Microbiology 06/05/19 Blood Culture, Received Pending 06/01/19 Blood Culture - Preliminary, Resulted No Growth after 72 hours. All specime... 06/01/19 Blood Culture - Preliminary, Resulted No Growth after 72 hours. All specime... Creatinine Clearance Date:06/05/19. Creatinine Clearance: [25ML/MIN]. Pending Labs VANCOMYCIN TROUGH 06/07/19 @0700 Assessment and Plan Maintaining Current Dose?: Yes Reason for dose change: No Dose Change Pharmacist Note Pharmacist Note Date: 06/05/19. Pharmacist note: Pt is a 74 year old male being treated for neutropenic fever goal trough 15-20mcg/ml. The patient has received 1g vancomycin iv 06/01 @02 in the ER. To achieve goal they will receive vancomycin 1g IV every 24 hours starting 06/05/19 @08:00. A trough is scheduled for 06/06 @07:00. We will continue to monitor and adjust the dose as needed. BRIEN XIE PHARMACY Jun 05, 2019 18:14
[2019-06-05 20:00] VITALS: BP 118/65
[2019-06-05] MEDS: SLF 3 ML SYR IV SCH (21:25)
[2019-06-06] VITALS (9 sets, daily range): BP systolic 121–154; BP diastolic 58–72
[2019-06-06] MEDS ORDERED: FUROSEMIDE 100MG/10ML VIAL (J1940) IV SCH
[2019-06-06] MEDS: MEROPENEM INJ 1 GM in IV 1 EA IV SCH ×2 (01:19→14:19)
[2019-06-06] MEDS: methylPREDNISolone INJ 125 MG/2 ML VIAL (J2930) IV SCH ×2 (01:20→14:20)
[2019-06-06 04:48] LABS: HEMATOCRIT 25.1 % (42.0-52.0); HEMOGLOBIN 8.7 g/dl (13.5-17.5); MEAN CORPUSCULAR HEMOGLOBIN 29.4 pg (27.0-33.0); MEAN CORPUSCULAR HGB CONC 34.7 g/dl (32.0-36.5); MEAN CORPUSCULAR VOLUME 84.8 fl (80.0-96.0); RED BLOOD COUNT 2.96 10^6/uL (4.30-6.10); WHITE BLOOD COUNT 3.4 10^3/uL (4.0-10.0)
[2019-06-06 05:17] LABS: PLATELET COUNT, AUTOMATED 14 10^3/uL (150-450)
[2019-06-06 05:22] LABS: CALCIUM LEVEL 8.4 MG/DL (8.8-10.2); CREATININE FOR GFR 2.27 MG/DL (0.70-1.30); POTASSIUM SERUM 3.6 MEQ/L (3.5-5.1)
[2019-06-06] MEDS: SODIUM CHLORIDE 0.9% INJ 10 ML SYR IV SCH ×2 (05:23→17:22)
[2019-06-06] MEDS: SLF 3 ML SYR IV SCH ×3 (05:24→22:00)
[2019-06-06] MEDS ORDERED: POTASSIUM CHLORIDE 10 MEQ SR TABLET PO ONE (05:30)
[2019-06-06 05:33] LABS: EOSINOPHILS 2 % (0-3); LYMPHOCYTES 8 % (16-44); METAMYELOCYTES 16 % (0-0); MONOCYTES 4 % (0-5); MYELOCYTES 4 % (0-0); NEUTROPHILS 60 % (28-66); PLATELET ESTIMATE MARKED DECREASE (NORMAL)
[2019-06-06 05:34] LABS: DOHLE BODIES 2+; TOXIC GRANULATION 1+
--- NOTE | 2019-06-06 07:43 | IPNPDOC ---
Date Seen Date of service 06/06/19. Progress Note Laboratory data reviewed this AM b/p stable Hb Stable 8.7 Plt 14K WBC 3.4 Rise in creatinine expected due to diuretic use Had troponin release c/w NQWMI and documented hypotension 06/02/19 Would proceed with on additional infusion of platelets today for count of 14K and expected decline in levels Prognosis remains quite poor Still on supplemental O2 VS, I&O, 24H, Fishbone Vital Signs/I&O Vital Signs Date Time Temp Pulse Resp B/P (MAP) Pulse Ox O2 Delivery O2 Flow Rate FiO2 06/06/19 04:00 96.7 101 22 121/59 (79) 90 Room Air 06/05/19 20:00 I&O- Last 24 Hours up to 6 AM 06/06/19 06:00 Intake Total 510 ml Output Total 1350 ml Balance -840 ml Laboratory Data 24H LABS Laboratory Tests 2 06/05/19 12:47: Urine Color YELLOW, Urine Appearance HAZY, Urine pH 5.0, Urine Specific [place] 1.006, Urine Protein 2+H, Urine Glucose (Auto)(UA) NEGATIVE, Urine Ketones (Auto) NEGATIVE, Urine Blood 3+H, Urine Nitrite NEGATIVE, Urine Bilirubin NEGATIVE, Urine Urobilinogen 0.2, Urine Leukocyte Esterase (Auto) NEGATIVE, Urine WBC (Auto) 1, Urine RBC (Auto) 177H, Urine Hyaline Casts (Auto) 0, Urine Bacteria (Auto) 1+H, Urine Squamous Epithelial Cells 0, Urine Amorphous Sediment (Auto) SMALLH, Urine Granular Casts (Auto) 9, Urine Mucus (Auto) SMALL, Urine Sperm (Auto) 06/06/19 04:38: Immature Granulocyte % (Auto) , Neutrophils (%) (Auto) , Nucleated Red Blood Cells % (auto) 0.0, Neutrophils 60, Band Neutrophils 6, Lymphocytes (Manual) 8L, Monocytes (Manual) 4, Eosinophils (Manual) 2, Metamyelocytes 16H, Myelocytes 4H, Toxic Granulation 1+, Dohle Bodies 2+, Platelet Estimate MARKED DECREASE, Immature Platelet Fraction 5.8, Anion Gap 9, Glomerular Filtration Rate 30.0L, Calcium Level 8.4L CBC/BMP Laboratory Tests 06/06/19 04:38 Microbiology Microbiology 06/05/19 Blood Culture - Preliminary, Resulted No growth after 24 hours . All specim... 06/01/19 Blood Culture - Preliminary, Resulted No Growth after 72 hours. All specime... 06/01/19 Blood Culture - Preliminary, Resulted No Growth after 72 hours. All specime... ALEJANDRO LARKIN MD Jun 06, 2019 07:43
[2019-06-06] MEDS ORDERED: VANCOMYCIN HCL 1,000 MG, VIAL MATE ADAPTER 1 EACH in D5W 250 ML IV SCH (08:00)
[2019-06-06] MEDS: IPRATROPIUM 0.5MG/ALBUTEROL 2.5MG INH SOL UD 3ML (DUONEB)(J7620) NEB SCH ×4 (08:10→20:21)
[2019-06-06] MEDS: TIOTROPIUM INHALER/CAPSULE (SPIRIVA) INH SCH (08:10)
[2019-06-06] MEDS: FLUCONAZOLE 100 MG TAB PO SCH (08:58)
[2019-06-06] MEDS: OMEPRAZOLE 20 MG CAP PO SCH (08:58)
[2019-06-06] MEDS: diltiaZEM **CD** 180 MG CAP PO SCH (08:58)
[2019-06-06] MEDS: FOLIC ACID 1 MG TAB PO SCH (08:58)
[2019-06-06] MEDS: FUROSEMIDE 40MG/4ML VIAL (J1940) IV SCH ×2 (09:00→16:36)
--- NOTE | 2019-06-06 11:35 | IPNPDOC ---
Text Note Date of Service The patient was seen on 06/06/19. NOTE SUBJECTIVE: 74-year-old male with past medical history of COPD, atrial fibril lation and acute myeloid leukemia was admitted for neutropenic fever. And seen this morning at bedside, he has no complaints at this time and looks comfortable in bed on room air now. He denies any fevers, chills, chest pain, difficulty breathing, nausea, vomiting, or abdominal pain. PHYSICAL EXAMINATION: VITAL SIGNS: Please see below. GENERAL: No distress HEENT: Normocephalic, atraumatic, moist mucous membranes NECK: Supple CARDIOVASCULAR EXAMINATION: Tachycardic, irregular rate. S1 and S2 appreciated. No murmurs, gallops, rubs. RESPIRATORY EXAMINATION: Diminished breath sounds bilaterally, Scattered rhonchi, no wheezes, crackles. ABDOMINAL EXAMINATION: Soft, nontender, nondistended, positive bowel sounds EXTREMITIES: Range of motion intact SKIN: Petechiae noted NEUROLOGICAL EXAMINATION: Alert and oriented 3 (person, place, year, situation), no focal deficits PSYCHIATRIC EXAMINATION: Calm and cooperative LABORATORY DATA, IMAGING STUDIES, MICROBIOLOGY: Please see below. ASSESSMENT AND PLAN: 74-year-old male with past medical history of acute myeloid leukemia, COPD and atrial fibrillation is admitted for neutropenic fever and acute kidney injury. PROBLEMS: 1. Neutropenic fever: afebrile for past 24 hours, continue Vanc/merrem, fluconazole day 2, repeat/initial cultures negative 2. Acute myeloid leukemia: Status post palliative chemotherapy x2 cycles, pancytopenic, received Neupogen/PRBC/platelets, platelets down to 14, oncology recommending giving additional unit of platelets. Neupogen discontinued, continued oncology recs appreciated. Discussed CODE STATUS today with him he feels as though whether his daughter thinks his best friend is what he would like to be done. We'll call his daughter today to discuss his CODE STATUS. 3. Acute on chronic kidney disease: Likely 2/2 chemotherapy (Gemcitabine), creatinine continues to rise, nephrology on board, continued recommendations appreciated. 4. COPD: given dyspnea & increased oxygen requirements, started on IV steroids in addition to antibiotics, duoneb PRN, continue Tiotropium & supplemental oxygen as needed to maintain O2 sats between 88-92% 5. Atrial fibrillation: Not on anticoagulation due to severe thrombocytopenia, continue Cardizem for rate control. 6. Hypertension: Continue Cardizem and Norvasc DVT prophylaxis: Contraindicated due to thrombocytopenia. GI prophylaxis: Home PPI VS,Fishbone, I+O VS, Fishbone, I+O Laboratory Tests 06/06/19 04:38 Vital Signs Date Time Temp Pulse Resp B/P (MAP) Pulse Ox O2 Delivery O2 Flow Rate FiO2 06/06/19 08:58 113 139/68 06/06/19 08:00 96.9 18 92 Room Air 06/05/19 20:00 I&O- Last 24 Hours up to 6 AM 06/06/19 06:00 Intake Total 510 ml Output Total 1350 ml Balance -840 ml GME ATTESTATION GME ATTESTATION My faculty preceptor for this patient encounter was physically present during the encounter and was fully available. All aspects of the patient interview, examination, medical decision making process, and medical care plan development were reviewed and approved by the faculty preceptor. The faculty preceptor is aware and concurs with the plan as stated in the body of this note and will attest to such by his/her cosignature. BAUTISTA DANIELSON DO Jun 06, 2019 11:35
--- NOTE | 2019-06-06 13:48 | IPN ---
DATE OF SERVICE: 06/06/2019 SUBJECTIVE: The patient was seen and examined at the bedside today morning. He was sitting up in the bed today. He was off the oxygen. He reports that he is feeling much better today as compared with yesterday. He is afebrile in the last 24 hours since his antibiotics were changed. There is slight worsening of his renal function. Creatinine has bumped up from 2 to 2.2 today. Otherwise, he denies any active complaints. OBJECTIVE: Vital signs: Temperature is 96.7 degrees Fahrenheit, blood pressure 122/64, pulse is 93, respiratory rate of 20, saturating 94% on room air. Intake and output: Urine output recorded is 2.2 liters yesterday, 200 mL so far today since overnight. Weight in the bed scale is 73.9 kg. PHYSICAL EXAMINATION: General: The patient is awake, alert, oriented times three, laying in bed, no apparent distress. Head and neck examination: Extraocular muscles intact. Pupils equally round and reactive to light. Mucous membranes are moist. Neck is supple. There is no significant jugular venous distention (JVD). Cardiovascular: S1, S2, tachycardia, irregularly irregular rate, 1+ edema on the bilateral lower extremities. Respiratory: Mildly decreased breath sounds at the bases. There is no rhonchi at this time. Abdomen: Soft, obese, positive bowel sounds, nontender. Musculoskeletal: No clubbing or cyanosis. Pulses are 2+. Central nervous system (FIRE ENGINE OPERATOR): No focal deficit. Power is 5/5 in all extremities. LABORATORY REVIEW: Complete blood count (CBC) showed a WBC of 3.4 which is worse than yesterday. It was 4.4 yesterday. Hemoglobin has dropped to 8.7. Platelets are 14 today. Basic metabolic profile (BMP) done today morning showed sodium 133, potassium 3.6, chloride 97, bicarbonate 27, BUN 33, creatinine is 2.2, it was 2 yesterday, calcium is 8.4. MICROBIOLOGY: All the blood cultures are negative so far. CURRENT INPATIENT MEDICATIONS: The patient's medications were all reviewed by me. He continues to be on intravenous (IV) meropenem 1 gram every 12 hours. He continues to be on vancomycin. He is getting DuoNeb nebulizations at this time, diltiazem 180 mg by mouth daily, fluconazole 1 mg daily, folic acid 1 mg by mouth daily. I have decreased the Lasix dose to 40 mg IV twice a day. He continues to be on Solu-Medrol 60 mg every 12 hours. Metoprolol has been stopped. He was given one dose of potassium chloride 40 mEq in the morning. No other significant change in the medications today as compared with yesterday. ASSESSMENT AND PLAN: 1. Acute kidney injury. Given persistent hematuria and proteinuria, most likely it is related with acute myeloid leukemia with chemotherapy and decitabine which was given a few days before admission to the hospital, and some of the bump in the creatinine is because of use of diuretics. However, to optimize the fluid status, I will continue the diuretic but decrease the dose at this time. 2. Acute myeloid leukemia. The patient was getting palliative chemotherapy as outpatient. He is already being seen by hematology. Management of anemia, thrombocytopenia, and neutropenia is as per hematology recommendations. I see that he is going to receive a unit of platelets today for persistent thrombocytopenia. 3. Acute chronic obstructive pulmonary disease (COPD) exacerbation. He is symptomatically getting better. He is on Solu-Medrol 60 mg IV twice a day, which can be tapered down to oral prednisone now. He continues to be on DuoNeb nebulizations. 4. Bilateral pneumonia. Procalcitonin level is still pending. However, the patient is clinically improving. He is afebrile in the last 24 hours, and his shortness of breath is significantly better. Continue current dose of vancomycin and meropenem. 5. Hypertension. The patient's amlodipine was stopped because of edema. He continues to be on Cardizem. 6. Atrial fibrillation. Heart rate is controlled with Cardizem. No anticoagulation because of thrombocytopenia. 7. Acute decompensated diastolic congestive heart failure. The patient is getting Lasix. I have decreased the dose to 40 mg IV twice a day.
[2019-06-07] VITALS: BP 129/58
[2019-06-07] MEDS: MEROPENEM INJ 1 GM in IV 1 EA IV SCH ×2 (02:30→14:09)
[2019-06-07 05:24] LABS: HEMATOCRIT 25.6 % (42.0-52.0); HEMOGLOBIN 8.9 g/dl (13.5-17.5); MEAN CORPUSCULAR HEMOGLOBIN 29.5 pg (27.0-33.0); MEAN CORPUSCULAR HGB CONC 34.8 g/dl (32.0-36.5); MEAN CORPUSCULAR VOLUME 84.8 fl (80.0-96.0); PLATELET COUNT, AUTOMATED 33 10^3/uL (150-450); RED BLOOD COUNT 3.02 10^6/uL (4.30-6.10); WHITE BLOOD COUNT 2.8 10^3/uL (4.0-10.0)
[2019-06-07 05:38] LABS: CALCIUM LEVEL 8.3 MG/DL (8.8-10.2); CREATININE FOR GFR 2.56 MG/DL (0.70-1.30); GLOMERULAR FILTRATION RATE 26.1 (>42); POTASSIUM SERUM 3.4 MEQ/L (3.5-5.1)
[2019-06-07 06:04] LABS: EOSINOPHILS 3 % (0-3); LYMPHOCYTES 18 % (16-44); METAMYELOCYTES 3 % (0-0); MONOCYTES 3 % (0-5); NEUTROPHILS 59 % (28-66); PLATELET ESTIMATE MARKED DECREASE (NORMAL)
[2019-06-07 06:05] LABS: OVALOCYTES 1+
[2019-06-07] MEDS: SLF 3 ML SYR IV SCH ×3 (06:48→20:30)
[2019-06-07] MEDS: SODIUM CHLORIDE 0.9% INJ 10 ML SYR IV SCH ×2 (06:48→17:33)
[2019-06-07] MEDS: IPRATROPIUM 0.5MG/ALBUTEROL 2.5MG INH SOL UD 3ML (DUONEB)(J7620) NEB SCH ×2 (07:18→11:17)
[2019-06-07] MEDS: TIOTROPIUM INHALER/CAPSULE (SPIRIVA) INH SCH (07:18)
[2019-06-07 07:47] VITALS: BP 134/63
[2019-06-07] MEDS: diltiaZEM **CD** 180 MG CAP PO SCH (08:23)
[2019-06-07] MEDS: OMEPRAZOLE 20 MG CAP PO SCH (08:24)
[2019-06-07] MEDS: FOLIC ACID 1 MG TAB PO SCH (08:24)
[2019-06-07] MEDS: predniSONE 50 MG TAB PO SCH (08:24)
[2019-06-07] MEDS: FUROSEMIDE 40MG/4ML VIAL (J1940) IV SCH ×2 (08:24→17:33)
[2019-06-07] MEDS: FLUCONAZOLE 100 MG TAB PO SCH (08:24)
[2019-06-07 11:45] VITALS: BP 132/63
--- NOTE | 2019-06-07 12:48 | REP ---
CHEST, PORTABLE: AP portable view of the chest is performed and compared to prior studies of 06/04/2019 and 06/01/2019. Right arm PICC line is noted with the tip in the superior vena cava. There is mild cardiomegaly. There is calcification of the thoracic aorta. There are scattered perihilar infiltrates again noted. There is improvement in the right upper and lower lung zones and in the left lower lung zone since the prior study, 06/04/2019. However, there are residual infiltrates present. There is stable blunting of the costophrenic angles. IMPRESSION: Improved bilateral infiltrates with bilateral residual infiltrates still present. Electronically Signed by Juan Carlos Leyva MD 06/07/2019 04:58 P
--- NOTE | 2019-06-07 13:36 | IPNPDOC ---
Text Note Date of Service The patient was seen on 06/07/19. NOTE SUBJECTIVE: 74-year-old male with past medical history of COPD, atrial fibril lation and acute myeloid leukemia was admitted for neutropenic fever. Patient is seen this morning at bedside, no complaints, no acute events overnight. Denies any chest pain, difficulty breathing, nausea, vomiting, constipation, diarrhea. When asked about the results of his conversation with his daughter yesterday, he recalls that he spoke with her but cannot remember the results of the conversat ion and asked us to speak with her about the decision regarding his code status. PHYSICAL EXAMINATION: VITAL SIGNS: Please see below. GENERAL: No acute distress. HEENT: Normocephalic, atraumatic, moist mucous membranes NECK: Supple CARDIOVASCULAR EXAMINATION: Tachycardic, irregular rhythm. S1 and S2 appreciated. No murmurs, gallops, rubs. RESPIRATORY EXAMINATION: clear to auscultation bilaterally, Scattered rhonchi, no wheezes, crackles. ABDOMINAL EXAMINATION: Soft, nontender, nondistended, positive bowel sounds EXTREMITIES: Range of motion intact SKIN: Petechiae noted NEUROLOGICAL EXAMINATION: Alert and oriented 3 (person, place, year, situation), no focal deficits PSYCHIATRIC EXAMINATION: Calm and cooperative LABORATORY DATA, IMAGING STUDIES, MICROBIOLOGY: Please see below. ASSESSMENT AND PLAN: 74-year-old male with past medical history of acute myeloid leukemia, COPD and atrial fibrillation is admitted for neutropenic fever and acute kidney injury. PROBLEMS: #. Neutropenic fever with bilateral pneumonia as possible source: afebrile for past 48 hours, continue Vanc/merrem, fluconazole, cultures negative #. 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 Status post palliative chemotherapy x2 cycles, pancytopenic, received Neupogen/PRBC/platelets, platelets up to 33 today, s/p platelet transfusion yesterday. Neupogen discontinued, continued oncology recs appreciated. Spoke with daughter, Danae, today and she stated she would like him to remain full code, she is aware of his prognosis overall. MOLST form updated over the phone and confirmed with nurse, Triston. #. Acute on chronic renal failure: Likely 2/2 chemotherapy (Gemcitabine), creatinine continues to up trend, nephrology on board, continued recommendations appreciated. #. Diastolic Congestive Heart failure: Nephrology giving IV lasix BID, patient exhibiting mild bilateral peripheral edema in lower extremities. #. Acute COPD exacerbation: dyspnea and oxygen requirements decreasing, transitioned to PO steroids in addition to antibiotics, duoneb PRN, continue Tiotropium & supplemental oxygen as needed to maintain O2 sats between 88-92% #. Atrial fibrillation: Not on anticoagulation due to severe thrombocytopenia, continue Cardizem for rate control. #. Hypertension: Continue Cardizem and Norvasc DVT prophylaxis: Contraindicated due to thrombocytopenia. GI prophylaxis: Home PPI VS,Fishbone, I+O VS, Fishbone, I+O Laboratory Tests 06/07/19 04:39 Vital Signs Date Time Temp Pulse Resp B/P (MAP) Pulse Ox O2 Delivery O2 Flow Rate FiO2 06/07/19 11:45 97.0 107 18 132/63 (86) 94 Room Air 06/05/19 20:00 I&O- Last 24 Hours up to 6 AM 06/07/19 06:00 Intake Total 880 ml Output Total 800 ml Balance 80 ml GME ATTESTATION GME ATTESTATION My faculty preceptor for this patient encounter was physically present during the encounter and was fully available. All aspects of the patient interview, examination, medical decision making process, and medical care plan development were reviewed and approved by the faculty preceptor. The faculty preceptor is aware and concurs with the plan as stated in the body of this note and will attest to such by his/her cosignature. ATTENDING NOTE I have independently interviewed and examined the patient at the bedside, and agree with the aforementioned management plans and physical findings as documented by my Resident Physician. BAUTISTA DANIELSON DO Jun 07, 2019 13:36 ALTON PARSONS MD Jun 09, 2019 11:31
[2019-06-07 16:00] VITALS: BP 131/58
[2019-06-07 20:00] VITALS: BP 118/60
[2019-06-07] MEDS: VANCOMYCIN HCL 1,000 MG, VIAL MATE ADAPTER 1 EACH in D5W 250 ML IV SCH (20:30)
--- NOTE | 2019-06-07 21:57 | IPN ---
DATE: 06/07/2019 SUBJECTIVE: The patient was seen and examined at the bedside today morning. He is afebrile. He is hemodynamically stable. He is on room air. He reports his shortness of breath is getting better. His renal function is worse today as compared with yesterday. His creatinine has bumped up from 2.2 to 2.5 today. OBJECTIVE: Vital signs: Temperature is 97 degrees Fahrenheit, blood pressure 132/63, pulse is 103, respiratory rate of 18, saturating 94% on room air. Intake and output: Urine output recorded is 400 mL yesterday, and I had a bedside bladder scan done today morning, and he had more than 400 mL of residual urine in the bladder. PHYSICAL EXAMINATION: General: The patient is awake, alert, oriented times two, laying in bed, in no apparent distress. Head and neck exam: Extraocular muscles intact. Pupils equally round and reactive to light. Mucous membranes are moist. Neck is supple. There is no jugular venous distention (JVD). Cardiovascular: S1, S2, regular rate. 1+ edema of the bilateral upper extremity and 1+ edema of the bilateral lower extremities. Respiratory: Mildly decreased breath sounds at the bases. No rhonchi. Abdomen: Soft, obese, positive bowel sounds. Nontender. Musculoskeletal: No clubbing or cyanosis. Pulses are 2+. Central nervous system (SNOW SHOVELER): No focal deficit. Power is 5/5 in all extremities. LAB REVIEW: CBC showed a WBC of 2.8, hemoglobin 8.9, platelets are 33. BMP showed sodium 135, potassium 3.4, chloride 98, bicarbonate 26, BUN 43, creatinine is 2.5, it was 2.2 yesterday. CURRENT INPATIENT MEDICATIONS: The patient's medications were all reviewed by myself. She continues to be on meropenem; vancomycin is on hold because of elevated levels. DuoNebs have been stopped now. He continues to be on Lasix 40 mg IV twice a day. IV Solu-Medrol has been stopped, and he is currently on prednisone 50 mg by mouth daily. No other change in the medications today as compared with yesterday. ASSESSMENT/PLAN: 1. Acute kidney injury. It is multifactorial, most likely induced by chemotherapy for acute myeloid leukemia, and it also might be rising because of use of diuretics, and the patient was in urinary retention in the morning. Continue to encourage frequent voiding. If the patient is not able to void completely, he might need placement of a Jones catheter. 2. Acute decompensated diastolic congestive heart failure. Continue current dose of Lasix 40 mg IV twice a day. Diuretic dose will be adjusted tomorrow morning. 3. Acute chronic obstructive pulmonary disease (COPD) exacerbation. The patient is symptomatically better. His steroids have been changed to oral prednisone now. DuoNebs have been stopped. 4. Neutropenic fever. The patient is currently on vancomycin and meropenem. He is afebrile now. Cultures are negative. Procalcitonin level came back negative, which rules out possibility of pneumonia. 5. Atrial fibrillation. Continue current dose of Cardizem. He is not a candidate for anticoagulation. 6. Acute myeloid leukemia. He was getting palliative chemotherapy. Primary team is discussing the goals of care with his daughter. Management of neutropenia, anemia and thrombocytopenia is as per Hematology/Oncology recommendations.
[2019-06-08] VITALS: BP 130/58
[2019-06-08] MEDS: SODIUM CHLORIDE 0.9% INJ 10 ML SYR IV SCH ×2 (02:11→17:55)
[2019-06-08] MEDS: MEROPENEM INJ 1 GM in IV 1 EA IV SCH ×2 (02:11→14:01)
[2019-06-08] MEDS: SLF 3 ML SYR IV SCH ×3 (02:11→21:54)
[2019-06-08 04:00] VITALS: BP 116/54
[2019-06-08 05:53] LABS: HEMATOCRIT 23.3 % (42.0-52.0); HEMOGLOBIN 8.2 g/dl (13.5-17.5); MEAN CORPUSCULAR HEMOGLOBIN 29.7 pg (27.0-33.0); MEAN CORPUSCULAR HGB CONC 35.2 g/dl (32.0-36.5); MEAN CORPUSCULAR VOLUME 84.4 fl (80.0-96.0); RED BLOOD COUNT 2.76 10^6/uL (4.30-6.10); WHITE BLOOD COUNT 1.8 10^3/uL (4.0-10.0)
[2019-06-08 06:02] LABS: PLATELET COUNT, AUTOMATED 23 10^3/uL (150-450)
[2019-06-08 06:20] LABS: CALCIUM LEVEL 8.6 MG/DL (8.8-10.2); CREATININE FOR GFR 2.05 MG/DL (0.70-1.30); GLOMERULAR FILTRATION RATE 33.8 (>42); POTASSIUM SERUM 3.6 MEQ/L (3.5-5.1)
[2019-06-08 06:27] LABS: ATYPICAL LYMPH 4 % (0-5); LYMPHOCYTES 11 % (16-44); METAMYELOCYTES 2 % (0-0); MONOCYTES 1 % (0-5); MYELOCYTES 1 % (0-0); NEUTROPHILS 77 % (28-66)
[2019-06-08 06:29] LABS: PLATELET ESTIMATE MARKED DECREASE (NORMAL)
[2019-06-08 08:00] VITALS: BP 152/67
[2019-06-08] MEDS: diltiaZEM **CD** 180 MG CAP PO SCH (08:43)
[2019-06-08] MEDS: FLUCONAZOLE 100 MG TAB PO SCH (08:43)
[2019-06-08] MEDS: predniSONE 50 MG TAB PO SCH (08:43)
[2019-06-08] MEDS: OMEPRAZOLE 20 MG CAP PO SCH (08:43)
[2019-06-08] MEDS: FUROSEMIDE 40MG/4ML VIAL (J1940) IV SCH ×2 (08:44→17:37)
[2019-06-08] MEDS: FOLIC ACID 1 MG TAB PO SCH (08:44)
[2019-06-08] MEDS: TIOTROPIUM INHALER/CAPSULE (SPIRIVA) INH SCH (09:10)
--- NOTE | 2019-06-08 11:30 | IPNPDOC ---
Text Note Date of Service The patient was seen on 06/08/19. NOTE SUBJECTIVE: 74-year-old male with past medical history of COPD, atrial fibril lation and acute myeloid leukemia was admitted for neutropenic fever. Patient is seen this morning at bedside, no acute events overnight. Denies any chest pain, difficulty breathing, nausea, vomiting, constipation, diarrhea. Patient has no complaints at this time and is wondering if he will be able to go home soon. PHYSICAL EXAMINATION: VITAL SIGNS: Please see below. GENERAL: No acute distress. HEENT: Normocephalic, atraumatic, moist mucous membranes NECK: Supple CARDIOVASCULAR EXAMINATION: regular rate, irregular rhythm. S1 and S2 appreciated. No murmurs, gallops, rubs. RESPIRATORY EXAMINATION: clear to auscultation bilaterally, Scattered rhonchi, no wheezes, crackles. ABDOMINAL EXAMINATION: Soft, nontender, nondistended, positive bowel sounds EXTREMITIES: Range of motion intact SKIN: Petechiae noted NEUROLOGICAL EXAMINATION: Alert and oriented 3 (person, place, year, situation), no focal deficits PSYCHIATRIC EXAMINATION: Calm and cooperative LABORATORY DATA, IMAGING STUDIES, MICROBIOLOGY: Please see below. ASSESSMENT AND PLAN: 74-year-old male with past medical history of acute myeloid leukemia, COPD and atrial fibrillation is admitted for neutropenic fever and acute kidney injury. PROBLEMS: #. Neutropenic fever with bilateral pneumonia as possible source: afebrile for p ast 48 hours, will continue one more day of IV antibiotics and transition to PO cefdinir tomorrow. Cultures negative to date. #. Acute myeloid leukemia: Transformation of long standing MDS to AML in jan 2019. Transfusion dependent. Status post palliative chemotherapy x2 cycles, pancytopenic, received Neupogen/PRBC/platelets, platelets 23 today, s/p platelet transfusion yesterday. Neupogen discontinued, continued oncology recs appreciated. Spoke with daughter, Danae, patient will continue to be full code. #. Acute on chronic renal failure: Likely 2/2 chemotherapy (Gemcitabine), creatinine improving, nephrology on board, continued recommendations appreciated. #. Diastolic Congestive Heart failure: Nephrology giving IV lasix BID, patient exhibiting mild bilateral peripheral edema in lower extremities. #. Acute COPD exacerbation: resolved. continue PO steroids, duonebs PRN, & supplemental oxygen as needed to maintain O2 sats between 88-92% #. Atrial fibrillation: Not on anticoagulation due to severe thrombocytopenia, continue Cardizem for rate control. #. Hypertension: Continue Cardizem and Norvasc DVT prophylaxis: Contraindicated due to thrombocytopenia. GI prophylaxis: Home PPI disposition: Anticipate possible discharge tomorrow, patient will likely need home health VS,Fishbone, I+O VS, Fishbone, I+O Laboratory Tests 06/08/19 05:34 Vital Signs Date Time Temp Pulse Resp B/P (MAP) Pulse Ox O2 Delivery O2 Flow Rate FiO2 06/08/19 08:43 82 152/67 06/08/19 08:00 96.2 18 94 Room Air 06/05/19 20:00 I&O- Last 24 Hours up to 6 AM 06/08/19 06:00 Intake Total 890 ml Output Total 2525 ml Balance -1635 ml GME ATTESTATION GME ATTESTATION My faculty preceptor for this patient encounter was physically present during the encounter and was fully available. All aspects of the patient interview, examination, medical decision making process, and medical care plan development were reviewed and approved by the faculty preceptor. The faculty preceptor is aware and concurs with the plan as stated in the body of this note and will attest to such by his/her cosignature. ATTENDING NOTE I have independently interviewed and examined the patient at the bedside, and agree with the aforementioned management plans and physical findings as documented by my Resident Physician. BAUTISTA DANIELSON DO Jun 08, 2019 11:30 ALTON PARSONS MD Jun 09, 2019 11:33
[2019-06-08 12:00] VITALS: BP 133/64
--- NOTE | 2019-06-08 14:22 | IPN ---
DATE OF SERVICE: 06/08/2019 SUBJECTIVE: Patient was seen and examined at the bedside today morning. He is afebrile, hemodynamically stable. His renal function is slightly better today as compared with yesterday. He denies any shortness of breath apart from his baseline mild shortness of breath. Pancytopenia is still persistent. He continues to be on intravenous (IV) antibiotics. OBJECTIVE: Vital Signs: Temperature is 96 degrees Fahrenheit, blood pressure 133/64, pulse is 85, respiratory rate of 18, saturating 96% on room air. Intake and Output: Urine output recorded is 2.2 liters yesterday, 1258 mL so far today since overnight. Weight in the bed scale is 73.9 kg. PHYSICAL EXAMINATION: General: Patient is awake, alert, oriented times three, sitting up in the bed, in no apparent distress. Head and Neck Exam: Extraocular muscles intact. Pupils equally round and reactive to light. Mucous membranes are moist. Neck is supple. There is no significant jugular venous distention (JVD). Cardiovascular: S1, S2, regular rate. 1+ edema of the bilateral lower extremities and 1+ edema of bilateral upper extremities. Respiratory: Mildly decreased breath sounds at the bases, otherwise no active rales or rhonchi. Abdomen: Soft, positive bowel sounds. Nontender. No organomegaly. Genitourinary: Bladder is not palpable. Musculoskeletal: No clubbing or cyanosis. Pulses are 2+. Central nervous system (INPATIENT CODER): No focal deficit. Power is power is 5/5 in all extremities. LAB REVIEW: CBC showed WBC of 1.8, hemoglobin 8.2, platelets are 23. BMP showed sodium 134, potassium 3.6, chloride 97, bicarbonate 30, BUN 53, creatinine is 2, it was 2.5 yesterday. IMAGING: A chest x-ray was done yesterday, which showed improved bilateral infiltrates and bilateral residual infiltrate still present, which are very hilar. CURRENT INPATIENT MEDICATIONS: Patient's medications were all reviewed by me. He continues to be on IV meropenem and IV vancomycin. He continues to be on fluconazole. His Lasix dose is still 40 mg IV twice a day. No other significant change in medications today as compared with yesterday. ASSESSMENT AND PLAN: 1. Acute kidney injury. Renal function is improving. Patient was in urinary retention yesterday. Creatinine has come down from 2.5 to 2.0 today. Okay to continue current dose of diuretics. 2. Acute decompensated diastolic congestive heart failure. Patient is currently on Lasix 40 mg IV twice a day. He is diuresing well. Continue current dose. 3. Acute chronic obstructive pulmonary disease (COPD) exacerbation. Patient is currently on oral prednisone. He is already on antibiotics. His breathing is significantly better. 4. Neutropenic fever. It has resolved now. Chest x-ray also shows resolving infiltrates. He is on vancomycin and meropenem. 5. Atrial fibrillation. He continues to be on Cardizem. Heart rate is controlled. He is not a candidate for anticoagulation. 6. Acute myeloid leukemia. Patient was getting palliative chemotherapy as outpatient. He still has pancytopenia. Management is as per Hem/Onc. However, patient is getting as needed blood transfusions and platelet transfusions.
[2019-06-08] MEDS ORDERED: FILGRASTIM 300 MCG/0.5 ML SYRINGE (J1442 PER 1MCG) SC ONE (15:00)
[2019-06-08 16:45] VITALS: BP 159/86
--- NOTE | 2019-06-08 17:26 | IPNPDOC ---
Date Seen The patient was seen on 06/08/19. Progress Note Oncology My pleasure to see Mr. Isaac rosales for follow-up Patient seen with RN Dementia seems a little more pronounced today Chart and laboratory data reviewed Patient remains afebrile WBC 1.8 today Hemoglobin 8.2 Platelet count 23,000 Today is day plus 16 status post cycle #2 decitabine with 3 days administered Patient is approaching his [place] Creatinine down to 2.05 Cultures negative to date. Procalcitonin levels noted to be within normal limits Physical exam Alert, awake laying in bed in no acute distress Bibasilar crackles identified So systolic murmur identified Impression 1. Pleasant 74 showed gentleman with long-standing underlying myelodysplastic syndrome with excess blasts with conversion to acute myeloid leukemia in January 2019. Day +16 cycle 2 modified decitabine for 3 out of 5 days at 20 mg/m Recommendations 1. Agree with discontinuing intravenous antibiotics and proceeding with oral antibiotics of choice as long as it covers gram-negative organisms. Moxifloxacin would be better choice than cefdinir my opinion 2. Patient will remain transfusion dependent and will require platelets by Thursday. This can be given prior to discharge 3. Patient will require short interval follow-up with His primary oncologist 4. Again prognosis is dismal. CODE STATUS can be addressed as an outpatient. Expected survival from this point is less than one year and likely less than 6 months Will have to address the fact that he still driving and recommend against that. Patient is not likely to be able to be independent for much longer We'll follow along with you 25 minutes on care VS, I&O, 24H, Fishbone Vital Signs/I&O Vital Signs Date Time Temp Pulse Resp B/P (MAP) Pulse Ox O2 Delivery O2 Flow Rate FiO2 06/08/19 12:00 96.0 85 18 133/64 (87) 96 Room Air 06/05/19 20:00 I&O- Last 24 Hours up to 6 AM 06/08/19 06:00 Intake Total 890 ml Output Total 2525 ml Balance -1635 ml Laboratory Data 24H LABS Laboratory Tests 2 06/07/19 18:43: Random Vancomycin Level 15.7 06/08/19 05:34: Immature Granulocyte % (Auto) , Neutrophils (%) (Auto) , Nucleated Red Blood Cells % (auto) 1.1H, Neutrophils 77H, Band Neutrophils 4, Lymphocytes (Manual) 11L, Monocytes (Manual) 1, Metamyelocytes 2H, Myelocytes 1H, Atypical Lymphocytes 4, Platelet Estimate MARKED DECREASE, Immature Platelet Fraction 3. 9, Anion Gap 7L, Glomerular Filtration Rate 33.8L, Calcium Level 8.6L CBC/BMP Laboratory Tests 06/08/19 05:34 Microbiology Microbiology 06/05/19 Blood Culture - Preliminary, Resulted No Growth after 72 hours. All specime... 06/01/19 Blood Culture - Final, Complete NO GROWTH AFTER 5 DAYS 06/01/19 Blood Culture - Final, Complete NO GROWTH AFTER 5 DAYS ALEJANDRO LARKIN MD Jun 08, 2019 17:26
[2019-06-08] MEDS: VANCOMYCIN HCL 1,000 MG, VIAL MATE ADAPTER 1 EACH in D5W 250 ML IV SCH (19:56)
[2019-06-08 22:00] VITALS: BP 119/62
[2019-06-09] MEDS: MEROPENEM INJ 1 GM in IV 1 EA IV SCH ×2 (01:58→16:19)
[2019-06-09] MEDS: SLF 3 ML SYR IV SCH ×3 (05:28→20:01)
[2019-06-09] MEDS: SODIUM CHLORIDE 0.9% INJ 10 ML SYR IV SCH ×2 (05:29→16:24)
[2019-06-09 06:00] VITALS: BP 120/67
[2019-06-09] MEDS: TIOTROPIUM INHALER/CAPSULE (SPIRIVA) INH SCH (07:17)
[2019-06-09 08:17] LABS: HEMATOCRIT 23.5 % (42.0-52.0); HEMOGLOBIN 8.1 g/dl (13.5-17.5); MEAN CORPUSCULAR HEMOGLOBIN 29.6 pg (27.0-33.0); MEAN CORPUSCULAR HGB CONC 34.5 g/dl (32.0-36.5); MEAN CORPUSCULAR VOLUME 85.8 fl (80.0-96.0); RED BLOOD COUNT 2.74 10^6/uL (4.30-6.10); WHITE BLOOD COUNT 8.7 10^3/uL (4.0-10.0)
[2019-06-09 08:30] LABS: PLATELET COUNT, AUTOMATED 24 10^3/uL (150-450)
[2019-06-09 08:41] LABS: CALCIUM LEVEL 8.3 MG/DL (8.8-10.2); CREATININE FOR GFR 1.72 MG/DL (0.70-1.30); GLOMERULAR FILTRATION RATE 41.4 (>42); POTASSIUM SERUM 3.6 MEQ/L (3.5-5.1)
[2019-06-09 09:17] LABS: ATYPICAL LYMPH 2 % (0-5); LYMPHOCYTES 6 % (16-44); METAMYELOCYTES 12 % (0-0); MONOCYTES 5 % (0-5); MYELOCYTES 3 % (0-0); NEUTROPHILS 62 % (28-66)
[2019-06-09 09:18] LABS: DOHLE BODIES 1+; OVALOCYTES 1+; PLATELET ESTIMATE MARKED DECREASE (NORMAL)
[2019-06-09 09:19] LABS: POIKILOCYTOSIS 1+
[2019-06-09] MEDS: FLUCONAZOLE 100 MG TAB PO SCH (09:46)
[2019-06-09] MEDS: FUROSEMIDE 40MG/4ML VIAL (J1940) IV SCH (09:46)
[2019-06-09] MEDS: FOLIC ACID 1 MG TAB PO SCH (09:46)
[2019-06-09] MEDS: predniSONE 20 MG TAB PO SCH (09:46)
[2019-06-09] MEDS: OMEPRAZOLE 20 MG CAP PO SCH (09:47)
[2019-06-09] MEDS: diltiaZEM **CD** 180 MG CAP PO SCH (09:50)
--- NOTE | 2019-06-09 11:24 | IPNPDOC ---
Text Note Date of Service The patient was seen on 06/09/19. NOTE SUBJECTIVE: 74-year-old male with past medical history of COPD, atrial fibril lation and acute myeloid leukemia was admitted for neutropenic fever. Patient transferred to [address] [place] [address] as he continues to do well. No acute events overnight. Patient has remained afebrile, denies dyspnea and chest pain. He is looking forward to being discharged home. PHYSICAL EXAMINATION: VITAL SIGNS: Please see below. GENERAL: No acute distress. HEENT: Normocephalic, atraumatic, moist mucous membranes NECK: Supple CARDIOVASCULAR EXAMINATION: regular rate, irregular rhythm. S1 and S2 appreciate d. No murmurs, gallops, rubs. RESPIRATORY EXAMINATION: clear to auscultation bilaterally, Scattered rhonchi, no wheezes, crackles. ABDOMINAL EXAMINATION: Soft, nontender, nondistended, positive bowel sounds EXTREMITIES: Range of motion intact SKIN: Petechiae noted NEUROLOGICAL EXAMINATION: Alert and oriented 3 (person, place, year, situation), no focal deficits PSYCHIATRIC EXAMINATION: Calm and cooperative LABORATORY DATA, IMAGING STUDIES, MICROBIOLOGY: Please see below. ASSESSMENT AND PLAN: 74-year-old male with past medical history of acute myeloid leukemia, COPD and atrial fibrillation is admitted for neutropenic fever and acute kidney injury. PROBLEMS: #. Neutropenic fever 2/2 bilateral pneumonia: Resolved, will continue IV antibiotics and discharge home with cefdinir as it should be sufficient to cover for gram positive and gram negative infection with less risk for adverse eff ects. Cultures negative to date. #. 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 Status post palliative chemotherapy x2 cycles, pancytopenic, received Neupogen/PRBC/platelets. Neupogen given yesterday, continued oncology recs appreciated, will transfuse platelets tomorrow if repeats plts<20 . Spoke with daughter, Danae, patient will continue to be full code. #. Acute on chronic renal failure: Likely 2/2 chemotherapy (Gemcitabine), creatinine continues to improve, nephrology on board, continued recommendations appreciated. #. Diastolic Congestive Heart failure: Nephrology giving IV lasix BID, patient exhibiting mild bilateral peripheral edema in lower extremities. #. Acute COPD exacerbation: resolved. continue PO steroids, duonebs PRN, & supplemental oxygen as needed to maintain O2 sats between 88-92% #. Atrial fibrillation: Not on anticoagulation due to severe thrombocytopenia, continue Cardizem for rate control. #. Hypertension: Continue Cardizem and Norvasc DVT prophylaxis: Contraindicated due to thrombocytopenia. GI prophylaxis: Home PPI disposition: Anticipate discharge tomorrow, patient will need home health VS,Fishbone, I+O VS, Fishbone, I+O Laboratory Tests 06/09/19 07:37 Vital Signs Date Time Temp Pulse Resp B/P (MAP) Pulse Ox O2 Delivery O2 Flow Rate FiO2 06/09/19 09:50 92 142/65 06/09/19 06:00 97.2 18 95 Room Air 06/05/19 20:00 I&O- Last 24 Hours up to 6 AM 06/09/19 06:00 Intake Total 1380 ml Output Total 2225 ml Balance -845 ml GME ATTESTATION GME ATTESTATION My faculty preceptor for this patient encounter was physically present during the encounter and was fully available. All aspects of the patient interview, examination, medical decision making process, and medical care plan development were reviewed and approved by the faculty preceptor. The faculty preceptor is aware and concurs with the plan as stated in the body of this note and will attest to such by his/her cosignature. ATTENDING NOTE I have independently interviewed and examined the patient at the bedside, and agree with the aforementioned management plans and physical findings as documented by my Resident Physician. BAUTISTA DANIELSON DO Jun 09, 2019 11:24 ALTON PARSONS MD Jun 11, 2019 08:41
--- NOTE | 2019-06-09 13:06 | IPNPDOC ---
Date Seen The patient was seen on 06/09/19. Progress Note Oncology My pleasure to see Mr. 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 Patient remains afebrile Creatinine improved to 1.7 today WBC 8.7 Hemoglobin 8.1 Platelet count 24,000 Today is day plus 17 status post cycle #2 decitabine with 3 days administered Physical exam Alert, awake laying in bed in no acute distress Lungs coarse but clear today bilaterally No significant murmur identified today. irregular rhythm noted, rate controlled No significant lower extremity edema noted Impression 1. 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 Day +17 cycle 2 modified decitabine for 3 out of 5 days at 20 mg/m 2. Stable myelophthisic picture on peripheral smear without evidence of peripheral myeloblasts. G-CSF could bring up myeloblasts 3. G-CSF induced rise in WBC count. May discontinue further dosing. Suspect further rise tomorrow. Recommendations 1. Agree w proceeding with oral antibiotics of choice as outlined 2. Patient will remain transfusion dependent platelets have surprisingly held, agree with no platelet transfusion Thursday unless platelet count less than 20,000 tomorrow. Red blood cell transfusion for hemoglobin less than 7 g/dL 3. Patient understands that he will require short interval follow-up with his primary oncologist Primary oncologist will address CODE STATUS as he feels fit. Expectations on survival from this point on should be clarified with daughter and patient as an outpatient as overall prognosis remains quite poor. We'll follow along with you 25 minutes on care VS, I&O, 24H, [facility] Vital Signs/I&O Vital Signs Date Time Temp Pulse Resp B/P (MAP) Pulse Ox O2 Delivery O2 Flow Rate FiO2 06/09/19 09:50 92 142/65 06/09/19 06:00 97.2 18 95 Room Air 06/05/19 20:00 I&O- Last 24 Hours up to 6 AM 06/09/19 06:00 Intake Total 1380 ml Output Total 2225 ml Balance -845 ml Laboratory Data 24H LABS Laboratory Tests 2 06/08/19 18:51: Vancomycin Level Trough 18.4 06/09/19 07:37: Immature Granulocyte % (Auto) , Neutrophils (%) (Auto) , Nucleated Red Blood Cells % (auto) 0.3H, Neutrophils 62, Band Neutrophils 10, Lymphocytes (Manual) 6L, Monocytes (Manual) 5, Metamyelocytes 12H, Myelocytes 3H, Atypical Lymphocytes 2, Poikilocytosis 1+, Ovalocytes 1+, Dohle Bodies 1+, Platelet Estimate MARKED DECREASE, Immature Platelet Fraction 6.7, Anion Gap 9, Glomerular Filtration Rate 41.4L, Calcium Level 8.3L CBC/BMP Laboratory Tests 06/09/19 07:37 Microbiology Microbiology 06/05/19 Blood Culture - Preliminary, Resulted No Growth after 72 hours. All specime... 06/01/19 Blood Culture - Final, Complete NO GROWTH AFTER 5 DAYS 06/01/19 Blood Culture - Final, Complete NO GROWTH AFTER 5 DAYS ALEJANDRO LARKIN MD Jun 09, 2019 13:05
[2019-06-09 14:00] VITALS: BP 102/64
[2019-06-09] MEDS: TORSEMIDE 20 MG TAB PO SCH (16:21)
--- NOTE | 2019-06-09 17:56 | IPN ---
DATE OF SERVICE: 06/09/2019 SUBJECTIVE: The patient was seen and examined the bedside today morning. He is afebrile, hemodynamically able. He denies any shortness of breath. His renal function continues to improve. Creatinine is down to 1.7 today. His hemoglobin level is also staying stable. Leukopenia is improving with the dose of Neupogen that was given yesterday. He continues to be on intravenous (IV) antibiotics. OBJECTIVE: Vital signs: Temperature is 97.2 degrees Fahrenheit, blood pressure 102/64, pulse is 94, respiratory rate of 16, saturating 96% on room air. Intake and output: Urine output recorded as 2 liters yesterday and 2075 mL so far today since overnight. Weight in the bed scale is not available. PHYSICAL EXAMINATION: General: The patient is awake, alert, oriented times three, laying in bed in no apparent distress. Head and neck exam: Extraocular muscles intact. Pupils equally round and reactive to light. Mucous membranes are moist. Neck is supple. There is no jugular venous distention (JVD). Cardiovascular: S1, S2, regular rate. 1+ edema of the bilateral upper and lower extremities. Respiratory: Chest is clear to auscultation bilaterally. Bilateral equal air entry. No rales or rhonchi. Abdomen: Soft, positive bowel sounds. Nontender. No organomegaly. Musculoskeletal: No clubbing or cyanosis. Pulses are 2+. 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 Power is 5/5 in all extremities. LAB REVIEW: CBC showed WBC 8.7, hemoglobin 8.1, platelets of 24. BMP showed sodium 136, potassium 3.6, chloride 98, bicarbonate 29, BUN 54, creatinine is 1.7, it was 2. Calcium is 8.3. CURRENT INPATIENT MEDICATIONS: The patient's medications were all reviewed by myself. He continues to be on vancomycin and meropenem. Last vancomycin dose will be tomorrow. Meropenem, last dose will be on June 11, unless the patient gets switched to oral antibiotics. I have stopped his IV Lasix, and I have switched him to torsemide 20 mg by mouth twice a day. His prednisone is also being tapered down, and currently has been switched to 40 mg by mouth daily. ASSESSMENT/PLAN: 1. Acute kidney injury superimposed on chronic kidney disease. Patient's renal function is improving, creatinine is down to 1.7. Volume status is getting better. Diuretics have been switched to oral diuretics now. 2. Acute decompensated diastolic congestive heart failure. The patient's IV Lasix has been stopped. He is currently on torsemide 20 mg by mouth twice a day. 3. Acute chronic obstructive pulmonary disease (COPD) exacerbation. The patient is clinically significantly getting better. His prednisone has been tapered down to 40 mg by mouth daily. 4. Neutropenic fever. The patient's cultures are all negative. However, he is afebrile. He is on vancomycin and meropenem. Primary team is planning to switch him to oral antibiotics. 5. Atrial fibrillation. Heart rate is controlled. Continue current dose of Cardizem. 6. Acute myeloid leukemia with pancytopenia. The patient was given a dose of Neupogen yesterday. White cell count is better. Hemoglobin is staying stable. Platelets are also stable. Transfuse as needed as recommended by Hematology/Oncology. DISPOSITION: Patient's renal function continues to improve. His volume status is getting better. Electrolytes are within the acceptable range. Nephrology service is going to sign off at this moment. Please call nephrology service for any help in the management of this patient during this hospitalization.
[2019-06-09] MEDS: VANCOMYCIN HCL 1,000 MG, VIAL MATE ADAPTER 1 EACH in D5W 250 ML IV SCH (20:01)
[2019-06-09 21:58] VITALS: BP 144/71
[2019-06-10] VITALS (7 sets, daily range): BP systolic 132–138; BP diastolic 67–71
[2019-06-10] MEDS: MEROPENEM INJ 1 GM in IV 1 EA IV SCH ×2 (03:09→13:49)
[2019-06-10] MEDS: SODIUM CHLORIDE 0.9% INJ 10 ML SYR IV SCH (06:04)
[2019-06-10] MEDS: SLF 3 ML SYR IV SCH ×2 (06:04→13:49)
[2019-06-10] MEDS: TIOTROPIUM INHALER/CAPSULE (SPIRIVA) INH SCH (07:16)
[2019-06-10 08:10] LABS: HEMATOCRIT 27.1 % (42.0-52.0); HEMOGLOBIN 9.3 g/dl (13.5-17.5); MEAN CORPUSCULAR HEMOGLOBIN 29.7 pg (27.0-33.0); MEAN CORPUSCULAR HGB CONC 34.3 g/dl (32.0-36.5); MEAN CORPUSCULAR VOLUME 86.6 fl (80.0-96.0); RED BLOOD COUNT 3.13 10^6/uL (4.30-6.10); WHITE BLOOD COUNT 4.6 10^3/uL (4.0-10.0)
[2019-06-10 08:14] LABS: PLATELET COUNT, AUTOMATED 20 10^3/uL (150-450)
[2019-06-10 08:26] LABS: CALCIUM LEVEL 8.8 MG/DL (8.8-10.2); CREATININE FOR GFR 1.69 MG/DL (0.70-1.30); GLOMERULAR FILTRATION RATE 42.2 (>42); POTASSIUM SERUM 3.7 MEQ/L (3.5-5.1)
[2019-06-10 08:28] LABS: ATYPICAL LYMPH 1 % (0-5); LYMPHOCYTES 10 % (16-44); METAMYELOCYTES 16 % (0-0); MONOCYTES 4 % (0-5); MYELOCYTES 1 % (0-0); NEUTROPHILS 13 % (28-66)
[2019-06-10 08:29] LABS: PLATELET ESTIMATE MARKED DECREASE (NORMAL)
[2019-06-10] MEDS: TORSEMIDE 20 MG TAB PO SCH (08:30)
[2019-06-10] MEDS: OMEPRAZOLE 20 MG CAP PO SCH (08:30)
[2019-06-10] MEDS: FLUCONAZOLE 100 MG TAB PO SCH (08:30)
[2019-06-10] MEDS: predniSONE 20 MG TAB PO SCH (08:30)
[2019-06-10] MEDS: FOLIC ACID 1 MG TAB PO SCH (08:31)
[2019-06-10] MEDS: diltiaZEM **CD** 180 MG CAP PO SCH (08:31)
[2019-06-10] MEDS ORDERED: TORS20TA2 PO (14:32)
[2019-06-10] MEDS ORDERED: CEFD1CAP8 PO (14:32)
[2019-06-10] MEDS ORDERED: POTA10TA67 PO (14:32)
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
== END 2019-06-10 16:51 | disposition home health service (06) | DRG 660 ==
LOC: EDBD 21:59 → M ED 21:59 → M ED INP 06-02 01:52 → ENRESERVDT 06-02 02:10 → ENRESERVTM 06-02 02:10 → M MS5PR 06-02 03:03 → M PCU 06-05 14:00 → M MS5PR 06-08 16:42
PROVIDERS: ADMIT General Practice; ATTEND Internal Medicine Nephrology
PROC: 30233N1 Transfusion of Nonautologous Red Blood Cells into Peripheral Vein, Percutaneous Approach (ICD-10-PCS; principal; 2019-06-02)
PROC: 30233R1 Transfusion of Nonautologous Platelets into Peripheral Vein, Percutaneous Approach (ICD-10-PCS; 2019-06-02)
DX: D70.9 Neutropenia, unspecified (principal); J96.01 Acute respiratory failure with hypoxia; J18.9 Pneumonia, unspecified organism; I50.33 Acute on chronic diastolic (congestive) heart failure; N17.9 Acute kidney failure, unspecified; C92.00 Acute myeloblastic leukemia, not having achieved remission; I13.0 Hypertensive heart and chronic kidney disease with heart failure and stage 1 through stage 4 chronic kidney disease, or unspecified chronic kidney disease; F03.90 Unspecified dementia, unspecified severity, without behavioral disturbance, psychotic disturbance, mood disturbance, and anxiety; I48.91 Unspecified atrial fibrillation; N02.9 Recurrent and persistent hematuria with unspecified morphologic changes; J44.1 Chronic obstructive pulmonary disease with (acute) exacerbation; N18.9 Chronic kidney disease, unspecified; Z79.899 Other long term (current) drug therapy; Z88.8 Allergy status to other drugs, medicaments and biological substances; M51.36 Other intervertebral disc degeneration, lumbar region; K21.9 Gastro-esophageal reflux disease without esophagitis; Z87.891 Personal history of nicotine dependence; D61.818 Other pancytopenia